=== PATIENT | female | born 1975 | race Two or more races ===

== ENCOUNTER → 2020-07-28 14:23 | Outpatient (BNVA) | payer MEDICAID, SELFPAY | PROVIDERS: PCP Internal Medicine; Visit Provider Urology | DX: N30.10 Interstitial cystitis (chronic) without hematuria (principal) | CPT/HCPCS: 81002; 99212 ==

== ENCOUNTER 2020-10-08 15:37 | Outpatient (REF) | payer MEDICAID, SELFPAY ==
--- NOTE | ~2020-10-08 | US_ITS ---
EXAMINATION: US PELVIC COMPLETE CLINICAL INFORMATION: Pelvic pain. COMPARISON: None TECHNIQUE: Transverse abdominal and transvaginal ultrasound the pelvis is performed. FINDINGS: The uterus is anteverted and anteflexed, mildly heterogeneous measuring 11.2 cm in length, 3.2 cm in AP and 4.7 cm in transverse dimension. Endometrial thickness is 0.6 cm. There are several anechoic nabothian cysts seen in the cervix. Also visualized are small calcifications in the lower uterine segment with a scar. Right ovary measures 2.1 x 1.6 x 2.1 cm and volume 3.7 mL. No focal lesion seen. The left ovary measures 3.1 x 1.3 x 2.0 cm and volume 4.2 mL. There is anechoic cyst measuring 0.8 x 0.5 x 0.9 cm. US/US pelvic complete IMPRESSION: Simple left ovarian cyst. Otherwise both ovaries are unremarkable. Heterogeneous echotexture of the uterus. No focal lesion seen. There are scattered calcifications in lower uterine segment. Nabothian cysts in cervix.
--- NOTE | ~2020-10-08 | US_ITS ---
EXAMINATION: US PELVIC COMPLETE CLINICAL INFORMATION: Pelvic pain. COMPARISON: None TECHNIQUE: Transverse abdominal and transvaginal ultrasound the pelvis is performed. FINDINGS: The uterus is anteverted and anteflexed, mildly heterogeneous measuring 11.2 cm in length, 3.2 cm in AP and 4.7 cm in transverse dimension. Endometrial thickness is 0.6 cm. There are several anechoic nabothian cysts seen in the cervix. Also visualized are small calcifications in the lower uterine segment with a scar. Right ovary measures 2.1 x 1.6 x 2.1 cm and volume 3.7 mL. No focal lesion seen. The left ovary measures 3.1 x 1.3 x 2.0 cm and volume 4.2 mL. There is anechoic cyst measuring 0.8 x 0.5 x 0.9 cm. US/US transvaginal IMPRESSION: Simple left ovarian cyst. Otherwise both ovaries are unremarkable. Heterogeneous echotexture of the uterus. No focal lesion seen. There are scattered calcifications in lower uterine segment. Nabothian cysts in cervix.
== END 2020-10-08 15:38 | disposition home or self-care (01) ==
LOC: HO.US 15:37
PROVIDERS: PCP Internal Medicine; Visit Provider Internal Medicine
DX: R10.2 Pelvic and perineal pain (principal)
CPT/HCPCS: 76830; 76856

== ENCOUNTER 2020-11-18 10:44 | Outpatient (REF) | payer MEDICAID, SELFPAY ==
--- NOTE | ~2020-11-18 | US_ITS ---
EXAMINATION: PELVIC ULTRASOUND CLINICAL INFORMATION: Follow-up left ovarian cyst COMPARISON: Previous pelvic ultrasound 10/08/2020 TECHNIQUE: Transabdominal and transvaginal pelvic ultrasound was performed. Transvaginal exam was formed for better visualization of the uterus and ovaries. FINDINGS: The uterus is anteverted and measures 10.6 x 4.4 x 5.4 cm in dimension. No focal uterine lesion is seen. Endometrial thickness is normal measuring 0.9 cm. There are nabothian cysts in the cervix. The right ovary is normal-appearing and measures 2.4 x 1.9 x 2.6 cm. There is a small 1.4 x 1.1 x 1.4 cm simple right ovarian cyst. The left ovary is normal-appearing and measures 1.9 x 1.4 x 1.9 cm. The is no left ovarian cyst. There is a small amount of fluid in the pelvis. US/US pelvic and transvaginal IMPRESSION: Normal pelvic ultrasound.
== END 2020-11-18 10:45 | disposition home or self-care (01) ==
LOC: HO.US 10:44
PROVIDERS: PCP Internal Medicine; Visit Provider Internal Medicine
DX: R10.2 Pelvic and perineal pain (principal); N83.202 Unspecified ovarian cyst, left side
CPT/HCPCS: 76830; 76856

== ENCOUNTER → 2021-03-23 13:30 | Outpatient (BNVA) | payer MEDICAID, SELFPAY | PROVIDERS: PCP Internal Medicine | DX: N30.10 Interstitial cystitis (chronic) without hematuria (principal) | CPT/HCPCS: 51700; 51798; 99212 ==

== ENCOUNTER → 2021-03-25 14:31 | Outpatient (BNVA) | payer MEDICAID, SELFPAY | PROVIDERS: PCP Internal Medicine | DX: Z13.9 Encounter for screening, unspecified (principal); N30.10 Interstitial cystitis (chronic) without hematuria | CPT/HCPCS: 51700 ==

== ENCOUNTER → 2021-03-26 14:34 | Outpatient (BNVA) | payer MEDICAID, SELFPAY | PROVIDERS: PCP Internal Medicine | DX: N30.10 Interstitial cystitis (chronic) without hematuria (principal) | CPT/HCPCS: 51700 ==

== ENCOUNTER → 2021-03-29 14:39 | Outpatient (BNVA) | payer MEDICAID, SELFPAY | PROVIDERS: PCP Internal Medicine | DX: N30.10 Interstitial cystitis (chronic) without hematuria (principal) | CPT/HCPCS: 51700 ==

== ENCOUNTER → 2021-03-30 14:27 | Outpatient (BNVA) | payer MEDICAID, SELFPAY | PROVIDERS: PCP Internal Medicine | DX: N30.10 Interstitial cystitis (chronic) without hematuria (principal); Z88.6 Allergy status to analgesic agent; Z88.1 Allergy status to other antibiotic agents; Z88.8 Allergy status to other drugs, medicaments and biological substances | CPT/HCPCS: 51700 ==

== ENCOUNTER → 2021-03-31 14:22 | Outpatient (BNVA) | payer MEDICAID, SELFPAY | PROVIDERS: PCP Internal Medicine | DX: N30.10 Interstitial cystitis (chronic) without hematuria (principal); R23.2 Flushing; R35.1 Nocturia; T50.905A Adverse effect of unspecified drugs, medicaments and biological substances, initial encounter | CPT/HCPCS: 51700 ==

== ENCOUNTER → 2021-04-06 14:30 | Outpatient (BNVA) | payer MEDICAID, SELFPAY | PROVIDERS: PCP Internal Medicine | DX: N30.10 Interstitial cystitis (chronic) without hematuria (principal) | CPT/HCPCS: 51700 ==

== ENCOUNTER → 2021-04-13 14:13 | Outpatient (BNVA) | payer MEDICAID, SELFPAY | PROVIDERS: PCP Internal Medicine | DX: N30.10 Interstitial cystitis (chronic) without hematuria (principal) | CPT/HCPCS: 51700 ==

== ENCOUNTER → 2021-04-20 14:02 | Outpatient (BNVA) | payer MEDICAID, SELFPAY | PROVIDERS: PCP Internal Medicine | DX: N30.10 Interstitial cystitis (chronic) without hematuria (principal) | CPT/HCPCS: 51700 ==

== ENCOUNTER → 2021-04-27 14:14 | Outpatient (BNVA) | payer MEDICAID, SELFPAY | PROVIDERS: PCP Internal Medicine | DX: N30.10 Interstitial cystitis (chronic) without hematuria (principal) | CPT/HCPCS: 51700 ==

== ENCOUNTER → 2021-05-04 14:53 | Outpatient (BNVA) | payer MEDICAID, SELFPAY | PROVIDERS: PCP Internal Medicine | DX: N30.10 Interstitial cystitis (chronic) without hematuria (principal) | CPT/HCPCS: 51700 ==

== ENCOUNTER → 2021-08-05 14:29 | Outpatient (BNVA) | payer MEDICAID, SELFPAY | PROVIDERS: PCP Internal Medicine | DX: N30.10 Interstitial cystitis (chronic) without hematuria (principal) | CPT/HCPCS: 99212 ==

== ENCOUNTER → 2021-11-02 13:38 | Outpatient (BNVA) | payer MEDICAID, SELFPAY | PROVIDERS: PCP Internal Medicine | DX: N30.10 Interstitial cystitis (chronic) without hematuria (principal); Z79.899 Other long term (current) drug therapy | CPT/HCPCS: 99212 ==

== ENCOUNTER → 2022-02-07 10:13 | Outpatient (BNVA) | payer MEDICAID, SELFPAY | PROVIDERS: PCP Internal Medicine; Referring Provider Internal Medicine; Visit Provider Nurse Practitioner Family | DX: Z12.11 Encounter for screening for malignant neoplasm of colon (principal); K59.04 Chronic idiopathic constipation | CPT/HCPCS: 99202; 99212 ==

== ENCOUNTER 2022-04-25 12:28 | Outpatient (REF) | payer MEDICAID, SELFPAY ==
[2022-04-25 13:29] LABS: Hematocrit 37.3 % (37.0-47.0); Hemoglobin 12.2 g/dl (12.0-16.0); Mean Corpuscular HGB Conc 32.7 g/dl (31.0-35.0); Mean Corpuscular Hemoglobin 28.8 pg (27.0-33.0); Mean Platelet Volume 11.8 fL (9.4-12.3); Platelet Count 255 X10*3/uL (160-400); Red Blood Count 4.24 X10*6/uL (4.20-5.50); Red Cell Distribution Width 12.5 % (11.0-16.0); White Blood Count 6.4 X10*3/uL (4.8-10.8)
[2022-04-25 13:51] LABS: Alanine Aminotransferase 19 U/L (0-31); Albumin Level 4.7 g/dL (3.5-5.0); Alkaline Phosphatase 57 U/L (39-117); Anion Gap 15 (12-20); Aspartate Amino Transferase 20 U/L (5-31); Bilirubin Total 0.4 mg/dL (0.0-1.0); Blood Urea Nitrogen 9 mg/dL (9-16); Carbon Dioxide 29 mmol/L (22-29); Chloride 100 mmol/L (96-108); Estimated Glomerular Filt Rate > 60; Glucose Random 86 mg/dL (60-115); Potassium 4.2 mmol/L (3.3-5.1); Sodium 140 mmol/L (135-145); Total Protein 7.6 g/dL (6.5-8.0)
== END 2022-04-25 12:29 | disposition home or self-care (01) ==
LOC: HO.LAB 12:28
PROVIDERS: PCP Internal Medicine; Visit Provider Nurse Practitioner Family
DX: Z12.11 Encounter for screening for malignant neoplasm of colon (principal)
CPT/HCPCS: 36415; 80053; 84443; 85027

== ENCOUNTER → 2022-04-28 07:45 | Outpatient (BNVA) | payer MEDICAID, SELFPAY | PROVIDERS: PCP Internal Medicine; Visit Provider Nurse Practitioner Family | DX: G47.33 Obstructive sleep apnea (adult) (pediatric) (principal); Z99.89 Dependence on other enabling machines and devices | CPT/HCPCS: 99202 ==

== ENCOUNTER → 2022-05-03 09:39 | Outpatient (BNVA) | payer MEDICAID, SELFPAY | PROVIDERS: PCP Internal Medicine; Visit Provider Nurse Practitioner Family | DX: Z12.11 Encounter for screening for malignant neoplasm of colon (principal); K59.04 Chronic idiopathic constipation | CPT/HCPCS: 99212 ==

== ENCOUNTER 2022-05-06 09:41 | Outpatient (REF) | payer MEDICAID, SELFPAY ==
--- NOTE | ~2022-05-06 | XR_ITS ---
EXAMINATION: XR shoulder LT min 2V CLINICAL INFORMATION: Reason for Exam PAIN COMPARISON: None. TECHNIQUE: Four views of the shoulder FINDINGS: No acute fracture or dislocation. Mild degenerative changes of the acromioclavicular and glenohumeral joints with degenerative spurring. 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 XR/XR shoulder LT min 2V IMPRESSION: 1. No acute fracture or dislocation. 2. Mild degenerative changes of the shoulder. 3. 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
--- NOTE | ~2022-05-06 | XR_ITS ---
EXAMINATION: XR hip LT min 2V CLINICAL INFORMATION: Reason for Exam OSTEOARTHRITIS COMPARISON: None. TECHNIQUE: Two views of the left hip FINDINGS: No acute fracture or dislocation. Mild degenerative changes of the left hip with subchondral cystic change and marginal osteophytes. No soft tissue abnormality. XR/XR hip LT min 2V IMPRESSION: Mild degenerative changes of the left hip.
== END 2022-05-06 09:42 | disposition home or self-care (01) ==
LOC: HO.XRAY 09:41
PROVIDERS: PCP Internal Medicine; Visit Provider Internal Medicine
DX: M16.12 Unilateral primary osteoarthritis, left hip (principal); M25.512 Pain in left shoulder
CPT/HCPCS: 73030; 73502

== ENCOUNTER 2022-05-11 13:37 | Outpatient (REF) | payer MEDICAID, SELFPAY ==
--- NOTE | ~2022-05-11 | CT_ITS ---
EXAMINATION: CT HEAD WITHOUT CONTRAST CLINICAL INFORMATION: Hypertension. COMPARISON: Head CT from 09/30/2019. TECHNIQUE: Contiguous axial imaging was performed from the skull base to vertex without intravenous administration of contrast. This CT examination was performed using dose optimization techniques as appropriate, variously including the following: *Automated exposure control *Adjustment of mA and/or kV according to patient size (this includes techniques or standardized protocols for targeted exams where dose is matched to indication/reason for exam; i.e. extremities or head) *Use of iterative reconstruction technique DLP: 643 mGy-cm. FINDINGS: There is what may represent a chronic arachnoid cyst versus open lip schizencephalic defect along the high left parietal convexity, unchanged from the prior study. There is chronic remodeling of the inner cortical table of the high left parietal calvarium as well. There is no evidence of acute intracranial hemorrhage or territorial infarction. No new mass effect or midline shift is seen. Cleary to white matter differentiation is well preserved. The ventricles are otherwise normal in size. There is no abnormal attenuation within the brain parenchyma. The osseous structures and soft tissues are normal. The mastoid air cells are well aerated. There is significant mucosal thickening in the ethmoid and right maxillary sinus cavities with milder mucosal thickening in the left maxillary antrum and sphenoid sinuses. CT/CT head/brain wo IV con IMPRESSION: No acute intracranial pathology. Stable high left parietal extra-axial CSF collection remodeling the inner cortical table of the left parietal calvarium with extension nearly to the roof of the left lateral ventricle. Significant right maxillary sinus mucosal thickening and moderate ethmoid sinus disease partially visualized.
== END 2022-05-11 13:38 | disposition home or self-care (01) ==
LOC: HO.CT 13:37
PROVIDERS: PCP Internal Medicine; Visit Provider Internal Medicine
DX: R04.0 Epistaxis (principal); I10 Essential (primary) hypertension
CPT/HCPCS: 70450

== ENCOUNTER → 2022-06-22 13:14 | Outpatient (REF) | payer MEDICAID, SELFPAY | LOC: HO.SL 13:14 | PROVIDERS: PCP Internal Medicine; Visit Provider Nurse Practitioner Family | DX: G47.33 Obstructive sleep apnea (adult) (pediatric) (principal); R40.0 Somnolence; Z99.89 Dependence on other enabling machines and devices | CPT/HCPCS: 95806; 95810 ==

== ENCOUNTER → 2022-07-07 08:39 | Outpatient (BNVA) | payer MEDICAID, SELFPAY | PROVIDERS: PCP Internal Medicine; Visit Provider Nurse Practitioner Family | DX: G47.33 Obstructive sleep apnea (adult) (pediatric) (principal); R06.83 Snoring; R40.0 Somnolence; Z99.89 Dependence on other enabling machines and devices | CPT/HCPCS: 99212 ==

== ENCOUNTER 2022-07-08 10:31 | Day surgery (SDC) | payer MEDICAID, SELFPAY ==
[2022-07-05 15:18] VITALS: BMI 36.3
--- NOTE | 2022-07-08 10:15 | HO.ANESPROP2 ---
[facility] Active Problems Active Problems: All Active Problems (Updated 07/07/22 @ 09:20 by Randy Biggs CNP) Snoring (Acute) SIERRA on CPAP (Acute) Daytime sleepiness (Acute) Interstitial cystitis (Acute) Past Medical History Medical History (Updated 07/07/22 @ 09:20 by Randy Biggs CNP) delivery delivered History of UTI Interstitial cystitis Interstitial cystitis Family History Family History Mother Diabetes Father Stroke Family history of problems with anesthesia: No Surgical History Surgical History (Updated 07/05/22 @ 15:21 by Geovanna Dunham RN) History of Hx of tubal ligation History of Problems with Anesthesia: No Social History Social History (Updated 07/07/22 @ 08:57 by Altagracia Huynh CMA) Household Members: Family Alcohol intake: never Patient Tobacco Use Status: Never used Tobacco Are you DNR?: No Advance Directives: No Advance Directives Information Provided: Yes Advance Directives on File: No Patient : No FDLMP: 05/22/2022 service: No Current occupational exposures/hazards: No Meds Allergies Allergy/AdvReac Type Severity Reaction Status Date / Time Sulfa (Sulfonamide Allergy Severe tremors, Verified 07/07/22 08:55 Antibiotics) unsteadiness baclofen Allergy Intermediate cramping Verified 07/07/22 08:55 aspirin AdvReac Severe Rash Verified 07/07/22 08:55 naproxen AdvReac Severe Rash Verified 07/07/22 08:55 levetiracetam AdvReac Unknown Verified 07/08/22 10:58 oxcarbazepine AdvReac Unknown Verified 07/08/22 10:57 pentosan polysulfate sodium AdvReac Unknown Verified 07/08/22 10:56 [From [place]] trazodone AdvReac Unknown Verified 07/08/22 10:58 henazopynide Allergy Unknown Uncoded 07/08/22 10:56 Antibiotic AdvReac Unknown Rash Uncoded 07/07/22 08:55 Home Medications Medication Instructions Recorded Confirmed Last Taken Type calcium carbonate 300 mg (750 mg) 1 tab PO TID 08/05/21 07/05/22 Unknown History chewable tablet (Antacid Extra-Strength) hydrochlorothiazide 12.5 mg capsule 12.5 mg PO DAILY 08/05/21 07/05/22 Unknown History lamotrigine 100 mg tablet 100 mg PO BID 08/05/21 07/05/22 Unknown History lisinopril 5 mg tablet 5 mg PO DAILY 08/05/21 07/05/22 Unknown History sodium chloride 0.65 % nasal spray 1 - 2 spray intranasal Q2-3H PRN 08/05/21 11/02/21 Unknown History aerosol (Deep Sea Nasal) congestion metronidazole 0.75 % topical gel topical 01/31/22 Unknown History phenazopyridine 100 mg tablet 100 mg PO DAILY uti 07/05/22 07/05/22 Unknown History (Pyridium) Exam Exam Date and Time: July 08, 2022 1015 Height,Weight and Vital Signs: Height 4 ft 10 in Weight 78.925 kg Airway Mallampati Class: II (Front top cap) TM Dist: >3cm Neck ROM: Full Heart: rrr Lungs: cta Assessment and Plan Assessment Anesthesia Assessment: Anesthesia Plan Discussed and Chart Reviewed Final Anesthetic Review Family History of Problems with Anesthesia: No History of Problems with Anesthesia: No NPO: Yes ASA Class: II Final Preanesthetic Review: No Changes in Pt Med Stat, Meds/Allgs Chart Reviewed and Consent Obtained/Reviewed Patient Risk: Intermediate Procedure Risk: Intermediate Anesthetic Plan Anesthetic Plan: MAC: Disposition: Standard PACU
--- NOTE | 2022-07-08 10:55 | MHC.SHP ---
Pre-Procedural Eval Section A Date of Service: 07/08/22 The patient is an INPATIENT: No The History & Physical has been completed within 30 days and I have reviewed it.: No Section B Chief Complaint: screening Details of Present Illness: Colon cancer screening Relevant Family History (Specify if Yes): No Relevant Social History: None Present Medications: see Short Stay Collaborative assessment Medical History: Significant History ( delivery delivered History of UTI Interstitial cystitis) History of Previous Operations: Relevant previous surgery/procedure and date(s) ( history of , history of tubal ligation) Allergies: Allergies Allergy/AdvReac Type Severity Reaction Status Date / Time Sulfa (Sulfonamide Allergy Severe tremors, Verified 07/07/22 08:55 Antibiotics) unsteadiness baclofen Allergy Intermediate cramping Verified 07/07/22 08:55 aspirin AdvReac Severe Rash Verified 07/07/22 08:55 naproxen AdvReac Severe Rash Verified 07/07/22 08:55 Antibiotic AdvReac Unknown Rash Uncoded 07/07/22 08:55 Review of Systems Sugical H&P ROS: Negative: Constitution, Cardiovascular, Respiratory and Gastrointestinal Exam Surgical H&P Exam: Normal: Heart, Normal: Lungs, Normal: Extremities and Normal: Abdomen Plan Diagnosis/Plan: Unchanged I have reviewed the history and physical and performed a pertinent physical examination on my patient. No changes have occurred unless specified. Time Spent With Patient Time: Total time managing care of this patient today ____ minutes.
--- NOTE | 2022-07-08 11:10 | PM.OP ---
Brief Operative Note Date of Service: 07/08/22 Pre-op diagnosis: colon cancer screening Post-op diagnosis: other ( diverticulosis, hemorrhoids) Procedure: COLONOSCOPY TO CECUM Surgeon: Ladan Ibarra MD Anesthesia: MAC Was an Free Lance Artist used for this Procedure?: Yes Free Lance Artist: Monyt Maya Estimated blood loss (mL): 0 Pathology: none sent Condition: stable Disposition: PACU
--- NOTE | 2022-07-08 11:11 | W.PM.OPN ---
Operative Note Operative Note Date of Service: 07/08/22 Narrative: Pre-op diagnosis:?colon cancer screening, chronic constipation Post-op diagnosis:?other ( diverticulosis, hemorrhoids) Surgeon: Ladan Ibarra MD Anesthesia:?MAC COLONOSCOPY TILL CECUM Consent: Indications for the procedure and potential complications of bleeding, perforation, reaction to medications and missed diagnosis were discussed with the patient and informed consent was obtained. Instrument: Olympus PCF H 190 L variable stiffness pediatric colonoscope Monitoring: Vital signs and clinical assessment, intermittent blood pressure monitoring, continuous EKG monitoring, Pulse oximetry and Carbon Dioxide monitoring were done throughout the procedure. Colon withdrawl time was 23 minutes. Procedure: The patient was placed in the left lateral decubitis position and pre-procedure medications were administered. After a digital rectal examination of the ano-rectum, the video colonoscope was inserted into the rectum and advanced through the colon to the cecum. The colonoscope was slowly withdrawn in a retrograde panoramic fashion and the colon mucosa was carefully examined including a retroflexed view of the rectum. Findings and interventions are described below. Procedure Difficulty: Without difficulty Findings: Terminal Ileum: Not evaluated Cecum: Normal Ascending Colon: Normal Transverse Colon: Normal Descending Colon: Normal Sigmoid Colon: Moderate diverticulosis Rectum: Normal Ano-rectum: Moderate internal hemorrhoids Colon preparation: Good after copious irrigation Impression and Post Procedure Diagnosis: Colonoscopy Findings: No polyps were detected. Moderate diverticulosis seen in the sigmoid colon Moderate hemorrhoids on retroflexed exam. Plan: Patient has an appointment on 07/22/22 in the [facility] with Lorena Barraza FNP-BC . Repeat Colonoscopy in 10 years. Diverticulosis handout was given in the discharge area
[2022-07-08 11:13] VITALS: BP 118/63; PULSE 63; RESP 16; TEMP 36.8; O2SAT 99
[2022-07-08] MEDS: Lactated Ringers 1,000 ML 100 ML IVCONT (11:16)
[2022-07-08 12:03] VITALS: BP 75/43; PULSE 75; RESP 18; TEMP 36.4; O2SAT 99
[2022-07-08 12:06] VITALS: BP 87/45
[2022-07-08 12:14] VITALS: BP 100/59
[2022-07-08 12:18] VITALS: BP 111/35; PULSE 59; RESP 18; TEMP 36.8; O2SAT 99
== END 2022-07-08 12:38 | disposition home or self-care (01) ==
PROVIDERS: PCP Internal Medicine; Visit Provider Internal Medicine Gastroenterology
PROC: 0DJD8ZZ Inspection of Lower Intestinal Tract, Via Natural or Artificial Opening Endoscopic (ICD-10-PCS; CPT 45378; principal; 2022-07-08 11:20)
DX: Z12.11 Encounter for screening for malignant neoplasm of colon (principal); K57.30 Diverticulosis of large intestine without perforation or abscess without bleeding; K64.8 Other hemorrhoids; K59.04 Chronic idiopathic constipation; K21.9 Gastro-esophageal reflux disease without esophagitis; N30.10 Interstitial cystitis (chronic) without hematuria; Z87.440 Personal history of urinary (tract) infections; G47.33 Obstructive sleep apnea (adult) (pediatric); R56.9 Unspecified convulsions; Z79.899 Other long term (current) drug therapy; Z99.89 Dependence on other enabling machines and devices; Z88.1 Allergy status to other antibiotic agents; Z88.2 Allergy status to sulfonamides; Z88.8 Allergy status to other drugs, medicaments and biological substances
CPT/HCPCS: 45378

== ENCOUNTER → 2022-07-22 08:57 | Outpatient (BNVA) | payer MEDICAID, SELFPAY | PROVIDERS: PCP Internal Medicine; Visit Provider Nurse Practitioner Family | DX: K57.90 Diverticulosis of intestine, part unspecified, without perforation or abscess without bleeding (principal); Z98.890 Other specified postprocedural states | CPT/HCPCS: 99212 ==

== ENCOUNTER 2022-08-02 09:44 | Outpatient (REF) | payer MEDICAID, SELFPAY ==
[2022-08-02 16:53] LABS: Urine Cytology See Pathology rpt
== END 2022-08-02 09:45 | disposition home or self-care (01) ==
LOC: HO.LAB 09:44
PROVIDERS: PCP Internal Medicine; Visit Provider Nurse Practitioner Family
DX: N30.10 Interstitial cystitis (chronic) without hematuria (principal); R10.9 Unspecified abdominal pain; K21.9 Gastro-esophageal reflux disease without esophagitis; Z79.899 Other long term (current) drug therapy
CPT/HCPCS: 88112; 99212

== ENCOUNTER 2022-09-05 09:01 | Outpatient (REF) | payer MEDICAID, SELFPAY ==
--- NOTE | ~2022-09-05 | US_ITS ---
EXAMINATION: US RETROPERITONEAL LIMITED (RENAL ONLY) CLINICAL INFORMATION: Left flank pain. COMPARISON: None TECHNIQUE: Real-time imaging of the kidneys. FINDINGS: RIGHT KIDNEY: 10.2 x 4.3 x 5.0 cm (SAG x AP x TRV). The kidney is normal in size, contour, and echogenicity. Renal cortical thickness is normal. No calculi or focal parenchymal lesions. No hydronephrosis. LEFT KIDNEY: 11.5 x 5.6 x 4.1 cm (SAG x AP x TRV). The kidney is normal in size, contour, and echogenicity. Renal cortical thickness is normal. No calculi or focal parenchymal lesions. No hydronephrosis. US/US retroperitoneal limited IMPRESSION: Unremarkable examination.
== END 2022-09-05 09:02 | disposition home or self-care (01) ==
LOC: HO.US 09:01
PROVIDERS: Visit Provider Nurse Practitioner Family
DX: R10.9 Unspecified abdominal pain (principal); N30.10 Interstitial cystitis (chronic) without hematuria
CPT/HCPCS: 76775

== ENCOUNTER 2022-09-07 13:33 | Outpatient (REF) | payer MEDICAID, SELFPAY ==
--- NOTE | ~2022-09-07 | US_ITS ---
EXAMINATION: US PELVIS LIMITED (BLADDER) CLINICAL INFORMATION: Poor urinary stream. COMPARISON: Ultrasound retroperitoneal limited 09/05/2022. TECHNIQUE: Real-time imaging of the bladder. FINDINGS: BLADDER: Well distended and normal. Bilateral ureteral jets are demonstrated. Prevoid bladder volume is 385 mL. Postvoid bladder volume is 20 mL. OTHER: A 1.5 cm in maximal diameter left ovarian cyst is noted. This is a benign finding, for which no imaging follow-up is recommended. US/US bladder IMPRESSION: Unremarkable ultrasound examination of the urinary bladder..
== END 2022-09-07 13:34 | disposition home or self-care (01) ==
LOC: HO.US 13:33
PROVIDERS: PCP Internal Medicine; Visit Provider Nurse Practitioner Family
DX: R39.12 Poor urinary stream (principal)
CPT/HCPCS: 76857

== ENCOUNTER → 2022-09-09 13:31 | Outpatient (BNVA) | payer MEDICAID, SELFPAY | PROVIDERS: PCP Internal Medicine; Visit Provider Nurse Practitioner Family | DX: G47.33 Obstructive sleep apnea (adult) (pediatric) (principal); R40.0 Somnolence; R06.83 Snoring; Z99.89 Dependence on other enabling machines and devices | CPT/HCPCS: 99212 ==

== ENCOUNTER → 2022-09-20 21:58 | Outpatient (REF) | payer MEDICAID, SELFPAY | LOC: HO.SL 21:58 | PROVIDERS: Visit Provider Nurse Practitioner Family | DX: R40.0 Somnolence (principal); R06.83 Snoring | CPT/HCPCS: 95810 ==

== ENCOUNTER → 2022-11-01 14:12 | Outpatient (BNVA) | payer MEDICAID, SELFPAY | PROVIDERS: PCP Internal Medicine; Visit Provider Nurse Practitioner Family | DX: N30.10 Interstitial cystitis (chronic) without hematuria (principal); R31.29 Other microscopic hematuria | CPT/HCPCS: 99212 ==

== ENCOUNTER → 2022-11-14 09:13 | Outpatient (BNVA) | payer MEDICAID, SELFPAY | PROVIDERS: PCP Internal Medicine; Visit Provider Nurse Practitioner Family | DX: G47.9 Sleep disorder, unspecified (principal); E66.9 Obesity, unspecified | CPT/HCPCS: 99212 ==

== ENCOUNTER 2022-12-02 09:02 | Outpatient (REF) | payer MEDICAID, SELFPAY ==
--- NOTE | ~2022-12-02 | MM_ITS ---
EXAMINATION: MM SCREENING DIGITAL BREAST TOMOSYNTHESIS, BILATERAL CLINICAL INFORMATION: Screening. Asymptomatic. Age 47. Prior outside mammography from [place] performed in 2013, unavailable. Family history breast cancer, sister. The lifetime risk of breast cancer based on the Tyrer-Cuzick Model is 13%. COMPARISON: None. TECHNIQUE: Digital breast tomosynthesis is performed in both the craniocaudal and mediolateral oblique views along with computer-aided detection (CAD). Synthesized 2D images are generated from the tomosynthesis. FINDINGS: The breasts are almost entirely fatty (ACR BI-RADS breast composition Category a). Background stromal markings are normal. No architectural abnormality. There are no significant masses, abnormal calcifications, or other abnormalities. The axilla and skin contours are unremarkable. If prior outside mammography is able to be retrieved, comparison will be made in an addendum report. MM/MM tomosynthesis screening BI IMPRESSION: No mammographic evidence of malignancy. ASSESSMENT: BI-RADS 1: Negative RECOMMENDATION: Routine annual mammography screening. This patient's information was entered into a reminder system with a target due date for their next mammogram.
== END 2022-12-02 09:03 | disposition home or self-care (01) ==
LOC: HO.MAMMO 09:02
PROVIDERS: PCP Internal Medicine; Visit Provider Internal Medicine
DX: Z12.31 Encounter for screening mammogram for malignant neoplasm of breast (principal)
CPT/HCPCS: 77063; 77067

== ENCOUNTER 2023-08-11 12:01 | Outpatient (REF) | payer MEDICAID, SELFPAY ==
[2023-08-11 14:26] LABS: Anion Gap 13 (12-20); Blood Urea Nitrogen 10 mg/dL (9-16); Calcium 10.5 mg/dL (8.4-10.2); Carbon Dioxide 28 mmol/L (22-29); Chloride 103 mmol/L (96-108); Estimated Glomerular Filt Rate > 60; Glucose Random 74 mg/dL (60-115); Potassium 3.8 mmol/L (3.3-5.1); Sodium 140 mmol/L (135-145)
[2023-08-11 14:46] LABS: Vitamin D 25-OH Total 20.4 ng/mL (>30)
== END 2023-08-11 12:02 | disposition home or self-care (01) ==
LOC: HO.HHCL 12:01
PROVIDERS: Visit Provider Internal Medicine
DX: I10 Essential (primary) hypertension (principal)
CPT/HCPCS: 36415; 80048; 82306

== ENCOUNTER 2023-10-25 14:02 | Outpatient (REF) | payer MEDICAID, SELFPAY ==
--- NOTE | ~2023-10-25 | XR_ITS ---
EXAMINATION: XR CHEST 2 VIEWS XR RIBS, RIGHT CLINICAL INFORMATION: Subacute cough and left chest pain since 10/13/2023. COMPARISON: None TECHNIQUE: Frontal and lateral views of the chest were obtained. 3 views of the left ribs were obtained. FINDINGS: Lungs are clear. No consolidation, pneumothorax, or pleural effusion. Within the right upper lobe overlapping the posterior aspect of the right fifth rib, a 5 mm nodule is seen. The cardiomediastinal silhouette and pulmonary vasculature are normal. Osseous structures are unremarkable. Ribs are intact. No fractures are identified. XR/XR ribs LT 2V IMPRESSION: Unremarkable examination.
--- NOTE | ~2023-10-25 | XR_ITS ---
EXAMINATION: XR CHEST 2 VIEWS XR RIBS, RIGHT CLINICAL INFORMATION: Subacute cough and left chest pain since 10/13/2023. COMPARISON: None TECHNIQUE: Frontal and lateral views of the chest were obtained. 3 views of the left ribs were obtained. FINDINGS: Lungs are clear. No consolidation, pneumothorax, or pleural effusion. Within the right upper lobe overlapping the posterior aspect of the right fifth rib, a 5 mm nodule is seen. The cardiomediastinal silhouette and pulmonary vasculature are normal. Osseous structures are unremarkable. Ribs are intact. No fractures are identified. XR/XR chest 2V IMPRESSION: Unremarkable examination.
== END 2023-10-25 14:03 | disposition home or self-care (01) ==
LOC: HO.HHCX 14:02
PROVIDERS: Visit Provider Internal Medicine
DX: R05.2 Subacute cough (principal); R07.9 Chest pain, unspecified
CPT/HCPCS: 71046; 71100

== ENCOUNTER 2023-11-09 08:45 | Outpatient (REF) | payer MEDICAID, SELFPAY ==
--- NOTE | ~2023-11-09 | MM_ITS ---
EXAMINATION: MM DIAGNOSTIC DIGITAL BREAST TOMOSYNTHESIS, BILATERAL US BREAST LIMITED, LEFT MAMMOGRAPHY: CLINICAL INFORMATION: 48-year-old female complaining of left breast pain spanning 12:00 to 2:00 axis. No significant prior breast history. COMPARISON: Mammography: 12/02/2022. TECHNIQUE: Digital breast tomosynthesis is performed in both the craniocaudal and mediolateral oblique views along with computer-aided detection (CAD). Synthesized 2D images are generated from the tomosynthesis. In addition to standard views, full-field digital 3-D left mediolateral view was also included. FINDINGS: The breasts are almost entirely fatty (ACR BI-RADS breast composition Category a). Region of breast pain was marked by a pain marker in the far upper outer left breast by the technologist. There is no underlying mammographic abnormality identified. There are no suspicious masses, suspicious grouped calcifications, or areas of architectural distortion in either breast. The parenchymal pattern is stable from the prior exam. ULTRASOUND: CLINICAL INFORMATION: Patient complaining of left breast pain spanning 12:00 to 2:00 axis. COMPARISON: None TECHNIQUE: Targeted sonographic evaluation was performed using a high frequency linear transducer. Left breast upper outer quadrant was interrogated. Selected archived documentation. FINDINGS: LEFT BREAST: There is predominantly fatty breast tissue present. No suspicious mass is seen. There is no pathologic acoustic shadowing. There is no axillary adenopathy. No cystic abnormalities. There is no sonographic correlate to the region of left breast pain. MM/MM tomosynthesis diagnostic BI IMPRESSION: There are no findings suspicious for malignancy in either breast. Region of breast pain upper outer left breast shows no mammographic or sonographic correlate. This should be managed clinically. Otherwise, recommend resuming routine annual mammography. OVERALL ASSESSMENT: Mammography: BI-RADS 1 - Negative Ultrasound: BI-RADS 1 - Negative RECOMMENDATION: 1. Patient should be managed based on the clinical impression. 2. Otherwise, routine annual screening mammography. This patient's information was entered into a reminder system with a target due date for their next mammogram.
== END 2023-11-09 08:46 | disposition home or self-care (01) ==
LOC: HO.MAMMO 08:45
PROVIDERS: PCP Internal Medicine; Visit Provider Internal Medicine
DX: N64.4 Mastodynia (principal)
CPT/HCPCS: 76642; 77062; 77066

== ENCOUNTER → 2023-11-09 09:30 | Outpatient (BNV) | payer MEDICAID, SELFPAY | PROVIDERS: PCP Internal Medicine; Visit Provider Radiology Diagnostic Radiology | DX: N64.4 Mastodynia (principal) | CPT/HCPCS: 76642; 77062; 77066 ==

== ENCOUNTER 2023-11-15 13:41 | Outpatient (REF) | payer MEDICAID, SELFPAY ==
--- NOTE | ~2023-11-15 | US_ITS ---
EXAMINATION: US PELVIS CLINICAL INFORMATION: Follow-up pelvic pain and ovarian cyst. COMPARISON: Pelvic ultrasound 11/18/2020, 10/08/2020. TECHNIQUE: Ultrasound of the pelvis is performed using both transabdominal and transvaginal transducers. Transvaginal imaging is performed due to inadequate visualization transabdominally. FINDINGS: Uterus: The uterus is anteverted and measures 8.4 x 4.9 x 5.0 cm. Nabothian cysts in the cervix. No visible uterine mass. The double wall endometrial thickness is 11 mm. Adnexa: The right ovary measures 2.3 x 1.1 x 1.4 cm, 1.9 mL. The left ovary measures 2.4 x 2.3 x 1.8 cm, volume 5.2 mL. There are physiologic cysts/follicles in both ovaries for which no imaging follow-up is recommended. No free fluid. US/US pelvic and transvaginal IMPRESSION: No explanation for pelvic pain.
== END 2023-11-15 13:42 | disposition home or self-care (01) ==
LOC: HO.US 13:41
PROVIDERS: PCP Internal Medicine; Visit Provider Internal Medicine
DX: N83.202 Unspecified ovarian cyst, left side (principal)
CPT/HCPCS: 76830; 76856

== ENCOUNTER 2023-12-08 11:51 | Outpatient (REF) | payer MEDICAID, SELFPAY ==
[2023-12-08 13:56] LABS: Anion Gap 12 (12-20); Blood Urea Nitrogen 9 mg/dL (9-16); Carbon Dioxide 28 mmol/L (22-29); Chloride 103 mmol/L (96-108); Cholesterol 168 mg/dL (<200); Estimated Glomerular Filt Rate > 60; Glucose Random 88 mg/dL (60-115); HDL Cholesterol 54 mg/dL (>40); LDL Cholesterol Calculated 101 mg/dL (<100); Potassium 4.2 mmol/L (3.3-5.1); Sodium 139 mmol/L (135-145); Triglycerides 69 mg/dL (<150)
[2023-12-08 14:04] LABS: Vitamin D 25-OH Total 24.7 ng/mL (>30)
[2023-12-08 15:06] LABS: Reflex LDLD? No
[2023-12-09 06:10] LABS: CT PCR NOT DETECTED (Not Detect.); NG PCR NOT DETECTED (Not Detect.)
[2023-12-09 08:13] LABS: Bacterial Vaginosis PCR NEGATIVE (Negative); Candida Group PCR NOT DETECTED (Not Detect); Candida glab krusei PCR NOT DETECTED (Not Detect); Trichomonas vaginalis PCR NOT DETECTED (Not Detect)
[2023-12-13 21:59] LABS: HPV mRNA E6/E7 rflx Not Detected (Not Detected)
== END 2023-12-08 11:52 | disposition home or self-care (01) ==
LOC: HO.HHCL 11:51
PROVIDERS: Visit Provider Internal Medicine
DX: R07.89 Other chest pain (principal); R10.9 Unspecified abdominal pain; Z01.419 Encounter for gynecological examination (general) (routine) without abnormal findings
CPT/HCPCS: 0352U; 0353U; 36415; 80048; 80061; 82306; 87624; 88142

== ENCOUNTER 2024-02-14 11:29 | Outpatient (REF) | payer MEDICAID, SELFPAY ==
--- NOTE | ~2024-02-14 | CT_ITS ---
EXAMINATION: CT ABDOMEN AND PELVIS WITH CONTRAST CLINICAL INFORMATION: Pelvic pain. COMPARISON: Pelvic ultrasound dated 11/15/2023; bladder ultrasound dated 09/07/2022; renal ultrasound dated 09/05/2022; ultrasound pelvis dated 11/18/2020. TECHNIQUE: Multidetector volumetric images were obtained from the superior aspect of the liver through the pubic symphysis following administration 85 mL of Omnipaque 350 intravenous contrast. Sagittal and coronal reformatted images were obtained on the technologist's workstation. Oral contrast: No This CT examination was performed using dose optimization techniques as appropriate, variously including the following: *Automated exposure control *Adjustment of mA and/or kV according to patient size (this includes techniques or standardized protocols for targeted exams where dose is matched to indication/reason for exam; i.e. extremities or head) *Use of iterative reconstruction technique DLP: 520 mGy-cm FINDINGS: LUNG BASES: The visualized lung bases are unremarkable. LIVER, GALLBLADDER, AND BILIARY TREE: The liver is normal in size, shape, and attenuation. No focal hepatic lesion or biliary ductal dilatation is present. The gallbladder is unremarkable with no evidence of radiopaque gallstones, gallbladder wall thickening, or obvious pericholecystic inflammatory changes. PANCREAS: Unremarkable. SPLEEN: Unremarkable. ADRENAL GLANDS: Unremarkable. KIDNEYS AND URETERS: The kidneys are normal in size, shape, and attenuation. No hydronephrosis, hydroureter, or calculi seen. No perinephric stranding. BLADDER: Unremarkable. GASTROINTESTINAL TRACT: There is a moderately large stool burden, suggesting constipation. No obstruction, free intraperitoneal air or abscess is seen. There is no focal bowel wall thickening. No diverticulosis or diverticulitis is seen. The vermiform appendix is not identified with certainty; however, there is no finding to suggest appendicitis. ABDOMINAL WALL: No significant hernia is appreciated. LYMPH NODES: Normal. VASCULAR: Unremarkable. PELVIC VISCERA: The uterus and adnexa are unremarkable. A left tubal ligation clip is noted. OSSEOUS STRUCTURES: There is multi-level mild lower thoracic spondylosis. No acute or aggressive osseous finding is noted. CT/CT abdomen pelvis w IV con IMPRESSION: Findings suggest constipation, without keegan bowel obstruction. No focal bowel wall thickening is seen, and there is no appendicitis or diverticulitis noted. No abdominopelvic mass, free fluid or lymphadenopathy is seen. There is no urinary calculus or obstruction. Fleischner guidelines were followed. Electronically signed by: Basil Khan MD 03/10/2024 04:33 PM EDT RP
[2024-02-14] MEDS: Barium Sulfate Oral (Mocha) 450 ML ORAL.SUSP 900 ML PO (17:22)
[2024-02-14] MEDS: iohexoL 350 MG/ML 100 ML INFUS..BTL IV (17:23)
== END 2024-02-14 11:30 | disposition home or self-care (01) ==
LOC: HO.CT 11:29
PROVIDERS: PCP Internal Medicine; Visit Provider Internal Medicine
DX: R10.2 Pelvic and perineal pain (principal)
CPT/HCPCS: 74177; Q9967

== ENCOUNTER 2024-10-07 14:29 | Outpatient (AMB) | payer MEDICAID, SELFPAY ==
--- NOTE | 2024-10-07 14:56 | A.OFFVIS_ITS ---
Intake Visit Reasons: follow up Intake Note: Patient is present for follow up interstitial cystitis and microscopic hematuria Urology Medications: pyridium (prn), famotidine Blood Thinner: none Category Director Required: Yes Category Director Name: KALE ABURTO Accompanied by: Self / Same As Patient Allergies Sulfa (Sulfonamide Antibiotics) Allergy (Severe, Verified 10/07/24 15:37) tremors, unsteadiness baclofen Allergy (Intermediate, Verified 10/07/24 15:37) cramping aspirin Adverse Reaction (Severe, Verified 10/07/24 15:37) Rash levetiracetam Adverse Reaction (Severe, Verified 10/07/24 15:37) Unknown naproxen Adverse Reaction (Severe, Verified 10/07/24 15:37) Rash oxcarbazepine Adverse Reaction (Severe, Verified 10/07/24 15:37) Facial Swelling pentosan polysulfate sodium [From Elmiron] Adverse Reaction (Mild, Verified 10/07/24 15:37) Vomiting trazodone Adverse Reaction (Unknown, Verified 10/07/24 15:37) Unknown henazopynide Allergy (Severe, Uncoded 10/07/24 15:37) Unknown Medication List - Last Reconciled 10/07/24 by ARLEEN Shepherd bisacodyl (Dulcolax (bisacodyl)) 10 mg (2 x 5 mg) PO BEDTIME calcium carbonate (Antacid Extra-Strength) 1 tab PO TID famotidine (Pepcid) 20 mg PO BID 90 days gabapentin 300 mg PO BEDTIME 30 days hydrochlorothiazide 12.5 mg PO DAILY imipramine HCl 25 mg PO BEDTIME 30 days lamotrigine 100 mg PO BID lisinopril 5 mg PO DAILY melatonin 1-3 tabs orally bedtime PRN; 30 days metronidazole 0.75% topical polyethylene glycol 3350 (Miralax) 17 grams PO DAILY sodium chloride 0.65% (Deep Sea Nasal) 1 - 2 sprays intranasal Q2-3H PRN HPI Comments Details: Briana is a 48-year-old Algerian-speaking female patient of Dr. Coleman who was accompanied by her daughter and grandson at today's office visit. She has a past medical history of diverticulitis as well as interstitial cystitis. In discussion with the patient today she reports noting worsening symptoms of her interstitial cystitis. She discusses her ongoing issues with urinary urgency, urinary frequency, and bladder pressure. She reports despite compliance with Pepcid she continues with these symptoms. In office urinalysis results reviewed with the patient today negative leukocytes negative nitrates and trace microscopic hematuria. She denies urinary incontinence, fever, chills, and or foul-smelling urine. We discussed potential causes of lower urinary tract symptoms patient is experiencing as well as further treatment options and risks and benefits of these treatment options. We discussed obtaining retroperitoneal ultrasound for further assessment evaluation. Educated and encouraged on the importance of drinking plenty of water daily. We also discussed importance of following up as planned as patient was last seen 02/2023 at which time recommendations were made for three-month follow-up however this was never followed through with. We discussed possible near future in office cystoscopy however will trial medications at this time. [facility] Medical History Diverticulosis delivery delivered Interstitial cystitis History of UTI Interstitial cystitis Surgical History History of Hx of colonoscopy Hx of tubal ligation Family History Mother Diabetes Father Stroke Social History Household Members: Family Alcohol intake: never Patient Tobacco Use Status: Never used Tobacco service: No Current occupational exposures/hazards: No Review of Systems Const Reports no additional complaints Eyes Reports no additional complaints ENT Details: patient reports having seasonal allergies Reports no additional complaints Card Reports no additional complaints Resp Reports no additional complaints GI Reports no additional complaints Reports as per HPI Musc Details: Patient reports having recent x-ray imaging with PCP and being diagnosed with arthritis of the left hip Reports no additional complaints Neuro Reports no additional complaints Psych Reports no additional complaints Endo Reports no additional complaints Quan/Lymph Reports no additional complaints Aller/Immun Reports no additional complaints Physical Exam Const General: cooperative, healthy appearing, comfortable, no acute distress, well developed, alert and awake Nutritional Appearance: overweight Orientation/consciousness: patient oriented x3 Limitations: no limitations HEENT Head: Yes normal to inspection, Yes normocephalic and Yes atraumatic Ears: hearing grossly normal bilaterally Neck Neck: Yes normal visual inspection and Yes trachea midline Chest Chest palpation & inspection: normal inspection of the chest Resp Effort & Inspection: normal respiratory effort and able to speak in complete sentences Cardio Rate: regular rate General: Yes no CVA tenderness Back/Spine/Pelvis Back: no CVA tenderness Cervical Spine: normal cervical lordosis Neuro General: patient oriented x3 Extrem General: Yes normal to inspection Psych Appearance: grossly normal and well kempt Mental Status: mental status grossly normal Speech and movement: Normal speech and movement present and Clear speech present Affect: normal affect Attitude: cooperative Thought process: Normal thought process present Thought content: Normal thought content present Insight: Fair insight present (Psych) Judgement: Fair judgement present (Psych) Office Procedures Post Void Residual Post Residual Void Post Void Residual (PVR): 0 [id number] Void Residual by ultrasound Results AMB Urinalysis, Automated UA Leukoctes 15 [place]/uL Last Edit by [employer] on 10/07/24 15:11 UA Nitrite Last Edit by [employer] on 10/07/24 15:11 UA Urobilinogen 0.2 mg/dL Last Edit by [employer] on 10/07/24 15:11 UA Protein 0 mg/dL Last Edit by [employer] on 10/07/24 15:11 UA pH 7.0 Last Edit by [employer] on 10/07/24 15:11 UA Blood 10 Per/uL Last Edit by [employer] on 10/07/24 15:11 UA Specific [place] 1.015 Last Edit by [employer] on 10/07/24 15:11 UA Ketone Last Edit by [employer] on 10/07/24 15:11 UA Bilirubin 0 mg/dL Last Edit by [employer] on 10/07/24 15:11 UA Glucose 0 mg/dL Last Edit by [employer] on 10/07/24 15:11 Results Reviewed Results Reviewed: Laboratory Last Values Urine pH (Auto) 7.0 10/07/24 15:10 Specific [place] (Auto) 1.015 10/07/24 15:10 Urine Protein (Auto) 0 mg/dL 10/07/24 15:10 Glucose (UA)(Auto) 0 mg/dL 10/07/24 15:10 Urine Blood (Auto) 10 Per/uL 10/07/24 15:10 Urine Bilirubin (Auto) 0 mg/dL 10/07/24 15:10 Urine Urobilinogen (Auto) 0.2 mg/dL 10/07/24 15:10 Leukocyte Esterase (Auto) 15 [place]/uL 10/07/24 15:10 Assessment & Plan Assessment & Plan (1) Interstitial cystitis: Code(s): N30.10 - Interstitial cystitis (chronic) without hematuria Category: Medical (2) Microscopic hematuria: Code(s): R31.29 - Other microscopic hematuria Category: Medical Plan In office urinalysis results reviewed with the patient today; will send for urine cytology. We discussed bladder triggers/irritants. Will obtain retroperitoneal ultrasound for further assessment evaluation. We discussed importance of following up as planned as patient was last seen February of 2023. We discussed potential causes of interstitial cystitis as well as further treatment options and risks and benefits of these treatment options. Start oxybutynin as discussed and prescribed. We discussed potential near future in office cystoscopy for further assessment evaluation. Follow-up in 1-3 months with imaging and PVR; or sooner with any issues, concerns, and or questions. Orders: Orders AMB Urinalysis Automated Today Z13.9 - Encounter for screening, unspecified AMB Post Void Residual by ultrasound Today N30.10 - Interstitial cystitis (chronic) without hematuria US retroperitoneal comp Today N30.10 - Interstitial cystitis (chronic) without hematuria, R31.29 - Other microscopic hematuria Urine Cytology Today R31.29 - Other microscopic hematuria Medications: New oxybutynin chloride ER 10 mg PO DAILY 30 days 30 tabs 3RF N32.81 - Overactive bladder Patient Instructions: The patient had an opportunity to ask questions regarding the treatment plan. All questions were answered. Physical exam, labs, and imaging were discussed and reviewed in detail. As well as risks, benefits, and discussion of treatment choices. No major barriers to understanding were identified. The patient expressed understanding and agreement with the above treatment plan. The patient was made aware they should contact our office by phone for worsening of their current condition, the appearance of new symptoms, or with any questions or concerns. Compliance is encouraged with any medications and follow up testing that is ordered. It is a privilege to be allowed the opportunity to participate in? your urological care.? Again, if you have any questions or concerns If you have any questions or concerns please do not hesitate to contact me. The office is [phone]. This note is constructed using voice recognition software. While every effort has been made to ensure accuracy customer engineering specialist errors may have been included. Yours sincerely, DENNY Shepherd-TATUM Coding Level of Care Code Est Pt Level 4 (14926) Complex EM visit Add On G2211 Diagnoses Interstitial cystitis N30.10 Microscopic hematuria R31.29 CPT Codes Post Residual Void - PVR CPT Code: 76298-Sxhf Void Residual by ultrasound ([id number])
== END 2024-10-07 15:37 | disposition home or self-care (01) ==
LOC: HO.HUSH 14:29
PROVIDERS: PCP Internal Medicine; Visit Provider Nurse Practitioner Family
DX: N30.10 Interstitial cystitis (chronic) without hematuria (principal); R31.29 Other microscopic hematuria; Z13.9 Encounter for screening, unspecified
CPT/HCPCS: 99214

== ENCOUNTER 2024-10-07 14:29 | Outpatient (REF) | payer MEDICAID, SELFPAY ==
[2024-10-07 17:03] LABS: Urine Cytology See Pathology rpt
== END 2024-10-07 14:30 | disposition home or self-care (01) ==
LOC: HO.LNP 14:29
PROVIDERS: PCP Internal Medicine; Visit Provider Nurse Practitioner Family
DX: N30.10 Interstitial cystitis (chronic) without hematuria (principal); R31.29 Other microscopic hematuria
CPT/HCPCS: 51798; 81003; 88112; 99212

== ENCOUNTER 2024-10-25 10:14 | Outpatient (REF) | payer MEDICAID, SELFPAY ==
--- OUTSIDE RECORDS SUMMARY | 2024-10-25 11:03 | XMS_ITS | Encounter Summary ---
Author Organization [employer] Address [address] [place] [address] Care Team Providers Care Nailer Hand Name Role Phone Gladys Coleman MD Primary Care Provider + Reason for Referral * Imaging (Routine) - Authorized Specialty Diagnoses / Procedures Referred By Vamsi huang Referred To Contact Radiology Diagnoses Screening mammogram for breast cancer Procedures BI Mammogram Screening Tomosynthesis Bilateral Gladys Coleman MD [address] [place] [phone] Phone: tel: fax: [address] Phone: tel: fax: Referral ID Status Reason Start Date Expiration Date V isits Requested Visits Authorized [id number] Authorized 10/25/2024 10/25/2025 1 1 Reason for Visit * Reason Comments Annual Exam Encounter Details Date Type Department Care Team (Latest Contact Info) Description 10/25/2024 9:15 AM EDT Office Visit [facility] [address] [place] [address] [phone] Gladys Coleman MD [address] [place], [place] [phone] Acute rhinosinusitis (Primary Dx); Encounter for preventive health examination; Pelvic pain; Numbness and tingling; Vitamin D deficiency; Primary hypertension; Weight loss; Seborrheic dermatitis; Screening mammogram for breast cancer; Nasal congestion Social History Tobacco Use Types Packs/Day Years Used Date Smoking Tobacco: Never Passive Smoke Exposure: Never Smokeless Tobacco: Never Tobacco Cessation:Counseling Given: Not Answered Alcohol Use Standard Drinks/Week Comments Never 0 (1 standard drink = 0.6 oz pur e alcohol) Depression Answer Date Recorded Patient Health Questionnaire-9 Score 14 10/25/2023 Patient Health Questionnaire-9 Score 14 10/25/2023 Last PHQ-9: Questionnaire Data Not on file 0 10/25/2023 Housing Stability Answer Date Recorded What is your housing situation today? I have bret crawford 10/25/[address] you li ve. Do you have problems with any of the following? None of the above 10/25/2023 Food Insecurity Answer Date Recorded Within the past 12 months, y ou worried that your food would run out before you got money to buy more: Sometimes True 2023 Within the past 12 months,th e food you bought just didn't last and you didn't have enough money to get more: Sometimes True 10/25/2023 Transportation Answer Date Recorded In the past 12 months, has l ack of transportation kept you from medical appts, meetings, work or from getting things needed for daily living? No 10/25/2023 Utilities Answer Date Recorded In the past 12 months, has t he electric, gas, oil or water company threatened to shut off services in your home? Yes 10/25/2023 Depression Answer Date Recorded Patient Health Questionnaire-2 Score 2 10/25/2023 Comments No Sex and Gender Information Value Date Recorded Sex Assigned at Female 05/16/2022 10:36 AM EDT Legal Sex Female 10:36 AM EDT Gender Identity Female 05/16/2022 10:36 AM EDT Sexual Orientation Straight 05/16/2022 10 :36 AM EDT documented as of this encounter Last Filed Vital Signs Vital Sign Reading Time Taken Comments Blood Pressure 126/68 10/25/2024 9:26 AM EDT Pulse 70 10/25/2024 9:26 AM EDT Temperature 36.4 ??C (97.6 ??F) 10/25/2024 9:26 AM ED T Respiratory Rate - - Oxygen Saturation 100% 10/25/2024 9:26 AM EDT Inhaled Oxygen Concentration - - Weight 67.8 kg (149 lb 8 oz) 10/25/2024 9:26 AM EDT Height 147.3 cm (4' 10 ) 10/25/2024 9:26 AM EDT Body Mass Index 31.25 10/25/2024 9:26 AM EDT documented in this encounter Miscellaneous Notes * Assessment & Plan Note - Gladys Coleman MD - 10/25/2024 10:18 AM EDT Associated Problem(s): Encounter for preventive health examination Patient here for PE. -PAP smear: UTD, next 1 due 2028 -Colonoscopy: UTD, next 1 due 2031 -Mammogram: UTD, next 1 due this month, will order mammogram. -Ophthalmology: Overdue, she missed last month's appointment. I advised her to go to the eye clinicand to schedule appointment -Labs: Overdue for lipid profile. -Dental visit: UTD, she is getting set for dental implants -Adult IZ: COVID and influenza are overdue, she refused immunizations today. -Safety: Feels safe at home and is able to reach out for safety -Intimate Partner Violence Screening: Negative -In Relationship: Yes -STI screenin is negative -Hx STI/concern? None, she is not sexually active thank you Tylenol as is low February -Not Interested in PrEP -Advance directives: Information regarding healthcare proxy provided today * Assessment & Plan Note - Gladys Coleman MD - 10/25/2024 10:15 AM EDT Associated Problem(s): Seborrheic dermatitis Fluocinolone dermal oil to scalp on earlobes twice daily x 1 week then once daily x 3w then as needed * Assessment & Plan Note - Gladys Coleman MD - 10/25/2024 10:15 AM EDT Associated Problem(s): Acute rhinosinusitis Rapid viral test are negative today Rest (sleep at least 8 hours a night). Hydrate with plenty of water (avoid caffeine and alcohol). Use saline nose drops to loosen mucus + Flonase Take Acetaminophen (Tylenol??)/Ibuprofen as needed to reduce fever, headache, body aches or discomfort Gargle with salt water and use throat sprays/lozenges for throat pain. Use heated, humidified air. If you do not have a humidifier, take hot showers. Cover coughs and sneezes using the crook of your elbow. If you have a fever, stay home and away from others (self isolation) until fever-free for 72 hours (temperature should be less than 100??F without medication). * Assessment & Plan Note - Gladys Coleman MD - 10/25/2024 10:14 AM EDT Associated Problem(s): Weight loss Lost 10 pounds within 1 year, reportedly related to healthier diet? Update mammogram, Pap smear and colonoscopy are up-to-date Follow-up in 2 months * Assessment & Plan Note - Gladys Coleman MD - 10/25/2024 10:13 AM EDT Associated Problem(s): Vitamin D deficiency Re check vit D Continue being off Vit D Advised re outdoor excercise * Assessment & Plan Note - Gladys Coleman MD - 10/25/2024 10:12 AM EDT Associated Problem(s): Primary hypertension Controlled. Compliant w/meds Continue lisinopril 5mg + hctz Counseled re low salt diet/increase moderate physical activity. Check home BP BIW and prn CP/RESENDIZ/SUGGS Non smoking patient. FU in 6m * Assessment & Plan Note - Gladys Coleman MD - 10/25/2024 10:11 AM EDT Associated Problem(s): Pelvic pain CT scan abdomen pelvis has been within normal limits, showing constipation. She also has interstitial cystitis. Started on Senokot daily, hold for diarrhea Follow-up with urology for IC Recommended increased water intake and keep food/symptoms diary * Assessment & Plan Note - Gladys Coleman MD - 10/25/2024 10:10 AM EDT Associated Problem(s): Numbness and tingling On both legs, associated to hip pain, rule out trochanteric bursitis Referred to PT, take Tylenol as needed Order labs ro neuropthy documented in this encounter Plan of Treatment Upcoming Encounters Date Type Department Care Team (Late st Contact Info) Description 01/14/2025 9:00 AM EDT Office Visit [facility] [address] [place] [address] [phone] Gladys Coleman MD [address] [place], [place] [phone] Scheduled Orders Name Type Priority Associated Diagnoses Orde r Schedule BI Mammogram Screening Tomosynthesis Bilateral Imaging Routine Screening mammogram for breast cancer Expected: 10/25/2024 (Approximate), Expires: 12/25/2025 Vitamin D, 25-Hydroxy, Total, Immunoassay Lab Routine Vitamin D deficiency Expected: 10/25/2024 (Approximate), Expires: 10/25/2025 Lipid Panel with Reflex to Direct LDL Lab Routine Primary hypertension Expected: 10/25/2024 (Approximate), Expires: 10/25/2025 Hemoglobin A1c Lab Routine Numbness and tingling Expected: 10/25/2024 (Approximate), Expires: 10/25/2025 Lyme Disease Ab with Reflex to Blot (IgG, IgM) Lab Routine Numbness and tingling Expected: 10/25/2024, Expires: 10/25/2025 Vitamin B12/Folate, Serum Panel Lab Routine Numbness and tingling Expected: 10/25/2024, Expires: 10/25/2025 Glucose, Fasting Lab Routine Numbness and tingling Expected: 10/25/2024 (Approximate), Expires: 10/25/2025 Syphilis Screen Lab Routine Numbness and tingling Expected: 10/25/2024 (Approximate), Expires: 10/25/2025 TSH with Reflex to Free T4 Lab Routine Numbness and tingling Expected: 10/25/2024 (Approximate), Expires: 10/25/2025 documented as of this encounter Procedures Procedure Name Priority Date/Time Associated Diagnosis Comments POCT INFLUENZA B Routine 10/25/2024 9:29 AM EDT Nasal congestion POCT INFLUENZA A Routine 10/25/2024 9:29 AM EDT Nasal congestion POCT RAPID COVID ANTIGEN Routine 10/25/2024 9:27 AM EDT Nasal congestion documented in this encounter Results * POCT Rapid Influenza B OSOM (10/25/2024 9:29 AM EDT) [facility] Rapid Influenza B Ag Negative Negative, Indeterminate QC Media Lot # [id number] Lot# Expiration Date [id number] Swab 10/25/2024 9:29 AM EDT Gladys Coleman MD POINT OF CARE TEST ENTER /EDIT ORDERABLES Final Result * POCT Rapid Influenza A OSOM (10/25/2024 9:29 AM EDT) [facility] Rapid Influenza A Ag Negative Negative, Indeterminate QC Media Lot # [id number] Lot# Expiration Date 53,125 Swab Nasopharyngeal structure / Unknown 10/25/2024 9:29 AM EDT Gladys Coleman MD POINT OF CARE TEST ENTER /EDIT ORDERABLES Final Result * POCT Rapid Covid-19 BinaxNOW (10/25/2024 9:27 AM EDT) Rapid COVID Ag Negative QC Media Lot # [id number] Lot# Expiration Date 08,026 Swab 10/25/2024 9:27 AM EDT Gladys Coleman MD POINT OF CARE TEST ENTER /EDIT ORDERABLES Final Result documented in this encounter Visit Diagnoses Diagnosis Acute rhinosinusitis- Primary Encounter for preventive health examination Pelvic pain Numbness and tingling Disturbance of skin sensation Vitamin D deficiency Primary hypertension Unspecified essential hypertension Weight loss Loss of weight Seborrheic dermatitis Unspecified seborrheic dermatitis Screening mammogram for breast cancer Nasal congestion Other diseases of nasal cavity and sinuses documented in this encounter Additional Health Concerns Assessment Noted Time PHQ-9 Depression Total Score: 14 024 11:41 AM EDT documented as of this encounter Care Teams Nailer Hand Relationship Specialty Start Date End Date Gladys Coleman MD [address] [place] [phone] PCP - General Family Medicine 09/06/19 documented as of this encounter
--- OUTSIDE RECORDS SUMMARY | 2024-10-25 11:03 | XMS_ITS | Encounter Summary ---
Author Organization [employer] Address [address] [facility] 7[address] [place] [address] Care Team Providers Care Inspector General Name Role Phone Gladys Coleman MD Primary Care Provider + Reason for Visit * Reason Onset Date Comments Chart prep 2024 Encounter Details Date Type Department Care Team ([facility] st Contact Info) Description 2024 Telephone [facility] [address] [place], [place] [phone] Gladys Coleman MD [address] [place], [place] [phone] Chart prep Social History Tobacco Use Types Packs/Day Years Used Date Smoking Tobacco: Never Passive Smoke Exposure: Never Smokeless Tobacco: Never Alcohol Use Standard Drinks/Week Comments Never 0 [...] AM EDT documented as of this encounter Miscellaneous Notes * Telephone Encounter - Estefania Tavares [place] - 2024 10:20 AM EDT Chart Prep Labs: done Images: done Vaccines due: yes Referrals: complete Screenings: Up to date Overdue care gaps: Disability screen documented in this encounter Plan of Treatment Upcoming Encounters Date Type Department Care Team (Late st Contact Info) Description 01/14/2025 9:00 AM EDT Office Visit [facility] [address] [place] [phone] Gladys Coleman MD [address] [place] [address] documented as of this encounter Visit Diagnoses Not on filedocumented in this encounter Additional Health Concerns Assessment Noted Time PHQ-9 Depression Total Score: 14 024 11:41 AM EDT documented as of this encounter Care Teams Inspector General Relationship Specialty Start Date End Date Gladsy Coleman MD [address] [place] [phone] PCP - General Family Medicine 09/06/19 documented as of this encounter
--- OUTSIDE RECORDS SUMMARY | 2024-10-25 11:03 | XMS_ITS | Clinical Summary ---
Author Organization [employer] Address [address] [facility] [address] [place] [address] Care Team Providers Care Sampler First Name Role Phone Gladys Coleman MD Primary Care Provider + Allergies Active Allergy Reactions Criticality Noted Date Comments Aspirin Unknown 12/20/2019 Naproxen 12/20/2019 Sulfa Antibiotics 12/20/2019 Medications phenazopyridin e (Pyridium) 100 MG tablet take 1 tablet by oral route 3 times every day after meals as needed 01/08/20 21 Active lamoTRIgine (LaMICtal) 100 MG tablet Take 1 tablet by mouth twice daily with 25mg tablets (Total dose 125mg BID) Active lamoTRIgine (LaMICtal) 25 MG tablet Take 1 tablet by mouth twice daily with 100mg tablets (Total dose 125mg BID) Active cyclobenzaprin e (Flexeril) 5 MG tabletIndicati ons:Episodic tension-type headache, not intractable take 1 tablet by oral route qhs x 1w then 1x/d prn pain 30 tablet 3 08/11/19 24 Active lisinopril 5 MG tablet TAKE 1 TABLET BY MOUTH EVERY MORNING 90 tablet 1 03/13/20 24 Active hydroCHLOROthi azide (Microzide) 12.5 MG capsule TAKE 1 CAPSULE BY MOUTH EVERY MORNING 90 capsule 1 03/13/20 24 Active fluticasone (Flonase) 50 MCG/ACT nasal spray Administer 1 spray into each nostril Once per day. 16 g 10/26/19 25 025 Active acetaminophen (Tylenol Extra Strength) 500 MG tablet 1 tab PO tid prn headache/feve r/pain 60 tablet 10/26/19 25 Active cetirizine (ZyrTEC) 10 MG tablet Take 1 tablet (10 mg) by mouth Once per day. 30 tablet 2 10/26/19 25 025 Active senna-docusate sodium (Senokot-S) 8.6-50 MG tablet Take 1 tablet by mouth Once per day. 30 tablet 1 10/26/19 25 026 Active fluocinolone (Synalar) 0.01 % external solution Apply topically 2 times daily. 60 mL 1 10/26/19 25 Active acetaminophen (Tylenol Extra Strength) 500 MG tablet 2 tabs po daily prn pain 60 tablet 02/12/20 24 Discontinued(Re order (will not trigger notification to Pharmacy)) fluticasone (Flonase) 50 MCG/ACT nasal spray Administer 1 spray into each nostril Once per day. 16 g 03/08/20 24 025 Discontinued(Re order (will not trigger notification to Pharmacy)) Active Problems Problem Noted Date Diagnosed Date Acute rhinosinusitis 10/25/2024 Assessment & Plan (10/25/2024 10:15 AM EDT): Rapid viral test are negative today Rest [...] should be less than 100??F without medication). Numbness and tingling 10/25/2024 Assessment & Plan (10/25/2024 10:10 AM EDT): On both legs, associated to hip pain, rule out trochanteric bursitis Referred to PT, take Tylenol as needed Order labs ro neuropthy Seborrheic dermatitis 10/25/2024 Assessment & Plan (10/25/2024 10:15 AM EDT): Fluocinolone dermal oil to scalp on earlobes twice daily x 1 week then once daily x 3w then as needed Weight loss 10/25/2024 Assessment & Plan (10/25/2024 10:14 AM EDT): Lost 10 pounds within 1 year, reportedly related to healthier diet? Update mammogram, Pap smear and colonoscopy are up-to-date Follow-up in 2 months Viral upper respiratory tract infection 03/08/20 Assessment & Plan (03/08/2024 12:19 PM EDT): Use Flonase nasal spray daily x 5d Take tylenol prn fever, chills, RESENDIZ, sore throat. Advised to check for covid and call back PRN pos result. She has covid kits at home. Advised to call back prn worsening of sxs or come to [facility]. Encounter for cervical Pap smear with pelvic exa m 12/08/2023 Assessment & Plan (12/08/2023 11:24 AM EDT): Pelvic exam today wnl FU pap smear results/HPV/STI testing and will call back PRN positive results or FU in 3 months Pt feels safe at home no concern for DV/STDs Counseled regarding STI prevention If today's pap smear/co testing is normal next one will be due in 5 years. Fu vaginal swab results and Tx PRN Encounter for colorectal cancer screening 2023 Left-sided chest pain 10/25/2023 Assessment & Plan (10/25/2023 3:33 PM EDT): Likely muscular from chronic cough after URI Take tylenol prn, apply warm compresses to affected area Order CXR and Ribs Xray to ro rib fracture from cough. Acute left flank pain 10/25/2023 Assessment & Plan (11/10/2023 9:16 AM EDT): Recurrent, does not seem to be an issue now Fu renal US, will check w/ hospital about her appointment Fu in 1 m Assessment & Plan (10/25/2023 3:31 PM EDT): Its likely muscular, due to history of hematuria last year, I will order renal US FU with me in 2w Take tylenol prn pain Breast pain, left 10/25/2023 Assessment & Plan (10/25/2023 3:33 PM EDT): It seems to be muscular. I will order dx left mammogram and US due to quadrant location. Subacute cough 08/11/2023 Assessment & Plan (10/25/2023 3:32 PM EDT): - residual, most likely from URI - increased water intake, advised about vapor shower and to gargle with warm water and salt Assessment & Plan (08/11/2023 2:05 PM EST): Residual from URI, recommended increase water intake and use tessalon capsules prn Ingrown hair 08/11/2023 Assessment & Plan (08/11/2023 2:06 PM EST): Pubic area. Reassurance, recommended heat to effected area and avoid poking on the lesion Will fu at next visit or prn Primary hypertension 08/11/2023 Assessment & Plan (10/25/2024 10:12 AM EDT): Controlled. Compliant w/meds Continue lisinopril 5mg + hctz Counseled re low salt diet/increase moderate physical activity. Check home BP BIW and prn CP/RESENDIZ/SUGGS Non smoking patient. FU in 6m Assessment & Plan (08/11/2023 2:07 PM EST): Controlled. Compliant w/meds Continue lisinopril 5mg + hctz Counseled re low salt diet/increase moderate physical activity. Check home BP BIW and prn CP/RESENDIZ/SUGGS Non smoking patient. Encounter for preventive health examination 11/2022 Assessment & Plan (10/25/2024 10:18 AM EDT): Patient here for PE. -PAP smear: UTD, next 1 due 2028 -Colonoscopy: UTD, next 1 due 2031 -Mammogram: UTD, next 1 due this month, will order mammogram. -Ophthalmology: Overdue, she missed last month's appointment. I advised her to go to the eye clinic and to schedule appointment -Labs: Overdue for lipid [...] she is not sexually active thank you Martin as is low February -Not Interested in PrEP -Advance directives: Information regarding healthcare proxy provided today Assessment & Plan (10/19/2022 11:19 AM EDT): Discussed with patient re increase fresh fruit and vegetable intake. Counseled re moderate exercise as tolerated, up to 20min/d Patient feels safe at home. PAP smear up to date, next one due on 2025 Mammogram TBO Eye exam up to date, next one due on January 2023 CRC screen up to date, next one due 2031 Lipids/FBS TBO Vaccinations agreed to influezna and Covid booster today order immune titers and FU next month Dental visit up to date, appointment scheduled for December 2022 Anxiety 07/14/2022 Arachnoid cyst 07/14/2022 Overview (04/27/2023): CT [place] head [place]/11/22 [place] showed a ...stable high left parietal extra-axial CSF collection remodeling the inner cortical table of the left parietal calvarium with extension nearly to the roof of the left lateral Ventricle...... Assessment & Plan (08/11/2023 2:01 PM EST): Seen by neurosurgery, no surgical intervention needed at this time Will obtain notes from urology, FU w/ pt in 3 m. May need second opinion given pt has visual field abnormalities that may or not be related to cyst Atypical chest pain 07/14/2022 Assessment & Plan (11/10/2023 9:17 AM EDT): Resolved, seems to be muscular 2/2 to chronic long episode of cough Calcific tendinitis of left shoulder 07/14/2022 Assessment & Plan (10/19/2022 11:28 AM EDT): Significantly improved after PT Continue exercises + Tylenol PRN Assessment & Plan (07/19/2022 3:53 PM EST): Continue Tylenol prn + Advised to come to acupuncture clinic Use Diclofenac gel Patient will bring info re PT office she wants to be referred to, so I can make that referral. She agreed with that POC Chronic interstitial cystitis 07/14/2022 Chronic low back pain 07/14/2022 Chronic left shoulder pain 07/14/2022 Cyst of ovary 07/14/2022 Assessment & Plan (12/08/2023 11:24 AM EDT): Physiological, no need to fu Assessment & Plan (11/10/2023 9:16 AM EDT): Fu pelvic US Has PAP smear w/ me in 1 m Assessment & Plan (10/25/2023 3:32 PM EDT): Fu pelvic US Dysuria 07/14/2022 Electrocardiogram abnormal 07/14/2022 Epigastric pain 07/14/2022 Assessment & Plan (03/08/2024 12:33 PM EDT): ? Related to Lamictal? Unclear as of why she developed it just recently as she's been on the same meds for few years now. Will ro PUD, use Sucralfate bid ac breakfast and dinner x 1mo and fu with me prn persistent abd pain, will do further w/u Episodic tension-type headache 07/14/2022 Assessment & Plan (08/11/2023 2:02 PM EST): Unclear if related to decreased vision, they're easily controlled with tylenol once /wk Obtain urology notes Epistaxis, recurrent 07/14/2022 Near syncope 07/14/2022 Obstructive sleep apnea syndrome 07/14/2022 Assessment & Plan (10/19/2022 11:28 AM EDT): Pt followed at [facility] [place] FU with sleep center after sleep study Pelvic pain 07/14/2022 Assessment & Plan (10/25/2024 10:11 AM EDT): CT scan abdomen pelvis has been within normal limits, showing constipation. She also has interstitial cystitis. Started on Senokot daily, hold for diarrhea Follow-up with urology for IC Recommended increased water intake and keep food/symptoms diary Assessment & Plan (03/08/2024 12:23 PM EDT): CT scan report is pending, will fu with [facility] radiology and call patient back with results. Advised to take tylenol prn, advised that it could be re to physiological cyst, re consult prn UTI sxs (hx IC) Assessment & Plan (02/12/2024 5:08 PM EDT): Ro ovarian cyst vs IC (Already dx) CT scan is pending Take Tylenol prn pain FU in 6w TV Assessment & Plan (12/08/2023 11:24 AM EDT): R/o vaginitis Order CT scan of pelvis and abd, r/o other intraabdominal pathology Perimenopause 07/14/2022 Pityriasis versicolor 07/14/2022 Primary osteoarthritis of left hip 07/14/2022 Assessment & Plan (07/19/2022 3:53 PM EST): See above, awaiting for PT office info for referral. FU in 3m Recurrent urinary tract infection 07/14/2022 Rosacea 07/14/2022 Seizure 07/14/2022 Assessment & Plan (08/11/2023 2:03 PM EST): Controlled, hasn't had a seizure in more than 3 yrs Continue Lamictal 100mg BID Spasm 07/14/2022 Vitamin D deficiency 07/14/2022 Assessment & Plan (10/25/2024 10:13 AM EDT): Re check vit D Continue being off Vit D Advised re outdoor excercise Assessment & Plan (03/08/2024 12:21 PM EDT): Complete Vit D x 3mo Advised re outdoor activities for at least 15min per day. Encounters Date Type Department Care Team Description 10/25/2024 9:15 AM EDT Office Visit [address] [address] Gladys Coleman MD Acute rhinosinusitis (Primary Dx); Encounter for preventive health examination; Pelvic pain; Numbness and tingling; Vitamin D deficiency; Primary hypertension; Weight loss; Seborrheic dermatitis; Screening mammogram for breast cancer; Nasal congestion 10/25/2024 Travel [address] [address] Gladys Coleman MD Chart prep 10/16/2024 Patient Outreach [address] [address] Gladys Coleman MD Pre-visit Planning ((Unable to reach for PVP screening, LVM)) 10/07/2024 Orders Only GENERIC EXTERNAL DATA DEPARTMENT Provider, Generic External Data 10/03/[address] [address] Gladys Coleman MD Med Refill 09/27/2024 Population Health Risk Score [facility] [address] [address] Provider, Population Health Generic 09/03/[address] [address] Gladys Coleman MD Chart prep 08/22/2024 Patient Outreach [address] [address] Gladys Coleman MD Pre-visit Planning ((Unable to reach for PVP screening and or LVM)) from Last 3 Months Immunizations Name Administration Dates Next Due Influenza injectable quadriv alent IIV4 with preservative 09/06/2019 Influenza injectable quadriv alent preservative free 05/06/2021,08/25/2020 Pfizer Covid-19 Vaccine 12+ 09/24/2021,,11/20/2020 Tdap 05/06/2021 Social History Tobacco Use Types Packs/Day Years [...] Orientation Straight 05/16/2022 10 :36 AM EDT Last Filed Vital Signs Vital Sign Reading Time Taken Comments Blood Pressure 126/68 10/25/2024 9:26 AM EDT Pulse 70 10/25/2024 9:26 AM EDT Temperature 36.4 ??C (97.6 ??F) 10/25/2024 9:26 AM ED T Respiratory Rate 12 02/12/2024 3:45 PM EDT Oxygen Saturation 100% 10/25/2024 9:26 AM EDT Inhaled Oxygen Concentration - - Weight 67.8 kg (149 lb 8 oz) 10/25/2024 9:26 AM EDT Height 147.3 cm (4' 10 ) 10/25/2024 9:26 AM EDT Body Mass Index 31.25 10/25/2024 9:26 AM EDT Plan of Treatment Upcoming Encounters Date Type Department Care Team (Late st Contact Info) Description 01/14/2025 9:00 AM EDT Office Visit [facility] [address] [place], [place] [phone] Gladys Coleman MD [address] [place], [place] [phone] Health Maintenance Due Date Last Done Comments CT Colonography 1975 FIT DNA/Cologuard 1975 FIT 1975 FOBT 1975 HIV Screening 1975 Sigmoidoscopy 1975 Alcohol/Substance Use Screening 1988 Family Planning (PISQ) 10/24/1991 Hepatitis B Vaccines (1 of 3 - 19+ 3-dose series) 10/24/1995 COVID-19 Vaccine ( season) 2024 09/24/2021, 12/11/2020, 11/20/2020 Influenza Vaccine (#1) 2024 , 08/25/2020, 09/06/2019 Depression Monitoring 04/25/2024 10/25/2023, 024 Depression Screening 10/24/2024 10/25/2023, 10/25/19 24 SDOH Screening 10/24/2024 10/25/2023 Mammogram 11/08/2024 11/09/2023, 10/16, 12/02/2022, Additional history exists Tobacco Screening 10/25/2025 10/25/2024 Zoster Vaccines (1 of 2) 2026 Cervical Cancer Screening 12/07/2028 HPV/Cotest 12/07/2028 12/08/2023, 10/29/2020 Lipid Panel 12/07/2028 12/08/2023, 10/15, 12/10/2020 Pap Smear 12/07/2028 12/08/2023, 10/15, 10/29/2020 DTaP/Tdap/Td Vaccines (2 - Td or Tdap) 05/06/2031 05/06/2021 Colonoscopy 07/08/2032 Colorectal Cancer Screening 07/08/2032 RSV Patients and Patients Aged 60 years or older (1 - 1-dose 75+ series) 10/24/2051 Hepatitis C Screening Completed 10/25/2022 HIB Vaccines Aged Out No longer eligi ble based on patient's age to complete this topic HPV Vaccines Aged Out No longer eligi ble based on patient's age to complete this topic Hepatitis A Vaccines Aged Out No long er eligible based on patient's age to complete this topic IPV Vaccines Aged Out No longer eligi ble based on patient's age to complete this topic Meningococcal Vaccine Aged Out No woody noreen eligible based on patient's age to complete this topic Pneumococcal Vaccine: Pediatrics (0 to 5 Years) and At-Risk Patients (6 to 49) Years) Aged Out No longer eligible based on patient's age to complete this topic RSV under 20 months Aged Out No longe r eligible based on patient's age to complete this topic Rotavirus Vaccines Aged Out No longer eligible based on patient's age to complete this topic Procedures Procedure Name Priority Date/Time Associated Diagnosis Comments POCT INFLUENZA B Routine 10/25/2024 9:29 AM EDT Nasal congestion POCT INFLUENZA A Routine 10/25/2024 9:29 AM EDT Nasal congestion POCT RAPID COVID ANTIGEN Routine 10/25/2024 9:27 AM EDT Nasal congestion CYTOPATH-CELL ENHANCED Routine 3:15 PM EDT LIPID PANEL WITH REFLEX TO DIRECT LDL Routine 12/08/2023 11:56 AM EDT Atypical chest pain PAP SMEAR Routine 12/08/2023 10:00 AM EDT Encounter for cervical Pap smear with pelvic exam HPV MRNA E6/E7 REFLEX TO HPV 16, 18/45 Routine 12/08/2023 9:30 AM EDT Encounter for cervical Pap smear with pelvic exam BI MAMMOGRAM DIAGNOSTIC TOMOSYNTHESIS BILATERAL Routine 11/09/2023 9:30 AM EDT Breast pain, left HEPATITIS PANEL, GENERAL Routine 10/25/2022 12:34 PM EDT Encounter for preventive health examination from Last 3 Months or Most Recently Relevant to Health Maintenance Results * POCT Rapid Influenza B OSOM (10/25/2024 9:29 AM EDT) Pathologist [facility] Rapid Influenza B Ag Negative Negative, Indeterminate QC Media Lot # [id number] Lot# Expiration Date [id number] Swab 10/25/2024 9:29 AM EDT Gladys Coleman MD POINT OF CARE TEST ENTER /EDIT ORDERABLES Final Result * POCT Rapid Influenza A OSOM (10/25/2024 9:29 AM EDT) [facility] Rapid Influenza A Ag Negative Negative, Indeterminate QC Media Lot # [id number] Lot# Expiration Date 53,125 Swab Nasopharyngeal structure / Unknown 10/25/2024 9:29 AM EDT Gladys Coleman MD POINT OF CARE TEST ENTER /EDIT ORDERABLES Final Result * POCT Rapid Covid-19 BinaxNOW (10/25/2024 9:27 AM EDT) [facility] Rapid COVID Ag Negative QC Media Lot # [id number] Lot# Expiration Date 63,026 Swab 10/25/2024 9:27 AM EDT us Gladys Coleman MD POINT OF CARE TEST ENTER /EDIT ORDERABLES Final Result * Cytopath-cell enhanced (10/07/2024 3:15 PM EDT) 10/07/2024 3:15 PM EDT 10/08/2024 7:20 AM EDT Narrative [facility] - 10/09/2024 5:01 PM EDT ----- ------- Name: Briana Dueñas ? Age/Sex: 48/F ? : 1975 Unit#: [id number] ?? Attend DrElvira Dunaway [facility] ?Re10/07/24 ?Status: DEP REF ? Location: HO.LNP ?Disch: ? ----- ------- SPEC : [id number] ? RECD: 10/08/24 ? STATUS: ??SOUT ? REQ NUM: [id number] ? KIMBERLY: 10/07/24-1515 ? SUBM DR: Elvira Renee-BC ? ENTERED: ??10/08/24 ?SP TYPE: Cytology ? OTHR DR: Gladys Coleman MD ? ORDERED: ??Cyto-enhanced ? Diagnosis ?? Urine: ??Negative for high-grade urothelial carcinoma. ? Comment: ??Examination of a monolayer preparation slide shows many benign squamous cells ?? with bacteria, occasional benign urothelial cells, and occasional degenerated ?? inflammatory cells and red blood cells. ?Clinical History Other microscopic hematuria ? Material Received ?? Urine ? Gross Description Received is 55 cc of slightly cloudy yellow fluid from which a ThinPrep slide is prepared. Copies To: ?? Gladys Coleman MD ?? [facility] ?? [address] ?? [place] [address] ?? [phone] ?? Elvira Renee-BC ?? [facility] ?? [address] ?? [place] [address] ?? [phone] ?? [email or web address] ----- ------- Signed (signature on file) Geovanna Jill 10/09/24 170 ? ----- ------- ? END OF REPORT ? us Generic External Data Provider LAB CYTOLOGY MISTI FITZGERALD Final Result [facility] [address] [place] [address] [phone] * (ABNORMAL) Lipid Panel with Reflex to Direct LDL (12/08/2023 11:56 AM EDT) Triglycerides 69 <150 mg/dL [facility] Comment:Desirable Triglyceri de: less than 150 mg/dLBorderline High Triglyceride 150-199 mg/dLHigh Triglyceride: 200-499 mg/dLVery High Triglyceride: greater than or equal to 5OO mg/dL Cholesterol 168 <200 mg/dL [facility] Comment:Desirable Cholestero l: less than 200 mg/dLBorderline High Cholesterol: 200-239 mg/dLHigh Cholesterol: greater than 239 mg/dL LDL Cholesterol Calculated 101(H) <100 mg/dL [facility] Comment:Desirable LDL: less than 100 mg/dLNear Optimal/Above Optimal LDL: 110- 129 mg/dLBorderline High LDL: 130-159 mg/dLHigh LDL: 160-189 mg/dLVery High LDL: greater than or equal to 190 mg/dL HDL Cholesterol 54 >40 mg/dL [facility] Comment:Desirable HDL: great er than 40 mg/dL Note: This HDL assay may give artificially low results in patients with liver disease. Blood 12/08/2023 11:5 6 AM EDT 12/08/2023 1:13 PM EDT us Gladys Coleman MD LAB BLOOD ORDERABLES Fin al Result [facility] [address] [place] [phone] * Pap Smear (12/08/2023 10:00 AM EDT) Swab Cervix uteri structure / Unknown 12/08/2023 10:00 AM EDT 12/11/2023 10:00 AM EDT Narrative [facility] - 12/25/2023 4:49 PM EDT ----- ------- Name: Briana Dueñas ? Age/Sex: 48/F ? [facility] 1975 [id number] [id number] ?? Attend Dr: Gladys Coleman MD ?Re12/08/23 ?Status: DEP REF ? Location: [facility] ? Disch: ? ----- ------- SPEC : [id number] ?RECD: 12/11/23-999 ? STATUS: ??SOUT ? REQ NUM: [id number] ? KIMBERLY: 12/08/23-999 ? SUBM DR: Gladys Coleman MD ? ENTERED: ??12/11/23-1255 ?SP TYPE: Pap Smr ?OTHR : ? ORDERED: ??Pap Smear ? Interpretation ?? Satisfactory for evaluation. ?? Negative for intraepithelial lesion or malignancy. ? HPV mRNA E6/E7: ?NOT DETECTED ? This assay detects E6/E7 viral messenger RNA (mRNA) from 14 high-risk HPV types (16, 18, ?? 31, 33, 35, 39, 45, 51, 52, 56, 58, 59, 66, 68) ? HPV testing performed by [facility] [place], [place]. ??See reference laboratory ?? portion of the EMR for entire report. ?Clinical Information LMP:unk Previous PAP test:2021, wnl ? Material Received ?? ThinPrep-Cervical ----- ------- Signed (signature on file) Jaclyn Guillaume 12/25/231648 ? ----- ------- ? END OF REPORT ? us Gladys Coleman MD LAB CYTOLOGY ORDERABLES Final Result [facility] [address] [place] [phone] * HPV mRNA E6/E7 w/Reflex to HPV Genotypes 16, 18/45 (12/08/2023 9:30 AM EDT) HPV nRNA E6/E7 Not Detected Not Detected [facility] Comment:Methodology: Transcr iption-Mediated AmplificationThis assay detects E6/E7 viral messenger RNA (mRNA) from 14high-risk HPV types (16,18,31,33,35,39,45,51,52,56,58,59,66,68).Cervical sources are required for HPV testing.If a vaginal source from a patient who has had atotal hysterectomy with removal of cervix wassubmitted, please contact the testing laboratoryfor alternative testing options.For additional information, please refer [email or web address]/faq/OLT486y8(This link if provided for information/educational purposes only.)THIS TEST WAS PERFORMED AT:[facility] [place] [phone] ZELAYA MD HPV mRNA E6/E7 TNP [facility] HPV 16 RNA TNP [facility] HPV 18/45 RNA TNP [facility] Vaginal Fluid Cervix uteri structure / Unknown 12/08/2023 9:30 AM EDT 12/11/2023 10:00 AM EDT Gladys Coleman MD LAB CYTOLOGY ORDERABLES Final Result Performing Organization Address [facility]/State/[facility] Co de Phone Number [facility] [address] [place] [phone] * BI Mammogram Diagnostic Tomosynthesis Bilateral (11/09/2023 9:30 AM EDT) Anatomical Region Laterality Modality Breast Bilateral Mammography 11/09/2023 9:30 AM EDT Narrative 11/09/2023 10:40 AM EDT ? [facility] [place] ? [address] ?[place] [address] ? Mammography Report ? Signed ? Patient: Briana Dueñas ?MR#: ?? [id number] ? : 1975 ?Acct:[id number] ? Age/Sex: 48 / F ?ADM Date: 04/25/24 ? Loc: HO.MAMMO ? Attending Dr: Gladys Coleman MD ? Ordering Physician: Gladys Coleman MD ?Results: 1Ne ?? gative ? Date of Service: 11/09/23 ?Follow Up: 1 Year From Orig ?? inal Mammogram ? Procedure(s): MM tomosynthesis diagnostic BI ?? Accession Number(s): [id number] ? cc: Gladys Coleman MD ? EXAMINATION: ?? MM DIAGNOSTIC DIGITAL BREAST TOMOSYNTHESIS, BILATERAL ?? US BREAST LIMITED, LEFT ? MAMMOGRAPHY: ?? CLINICAL INFORMATION: ? 48-year-old female complaining of left breast pain spanning 12:00 to ?? 2:00 axis. No significant prior breast history. ? COMPARISON: ?? Mammography: 12/02/2022. ? TECHNIQUE: ?? Digital breast tomosynthesis is performed in both the craniocaudal and ?? mediolateral oblique views along with computer-aided detection (CAD). ?? Synthesized 2D images are generated from the tomosynthesis. In addition ?? to standard views, full-field digital 3-D left mediolateral view was ?? also included. ? FINDINGS: ?? The breasts are almost entirely fatty (ACR BI-RADS breast composition ?? Category a). ? Region of breast pain was marked by a pain marker in the far upper ?? outer left breast by the technologist. There is no underlying ?? mammographic abnormality identified. ??There are no suspicious masses, ?? suspicious grouped calcifications, or areas of architectural distortion ?? in either breast. The parenchymal pattern is stable from the prior ?? exam. ? ULTRASOUND: ?? CLINICAL INFORMATION: ?? Patient complaining of left breast pain spanning 12:00 to 2:00 axis. ? COMPARISON: ?? None ? TECHNIQUE: ?? Targeted sonographic evaluation was performed using a high frequency ?? linear transducer. Left breast upper outer quadrant was interrogated. ?? Selected archived documentation. ? FINDINGS: ? LEFT BREAST: There is predominantly fatty breast tissue present. No ?? suspicious mass is seen. ??There is no pathologic acoustic shadowing. ?? There is no axillary adenopathy. No cystic abnormalities. ?? There is no sonographic correlate to the region of left breast pain. ? MM/MM tomosynthesis diagnostic BI ?? IMPRESSION: ?? There are no findings suspicious for malignancy in either breast. ? Region of breast pain upper outer left breast shows no mammographic or ?? sonographic correlate. This should be managed clinically. ? Otherwise, recommend resuming routine annual mammography. ? OVERALL ASSESSMENT: ?? Mammography: BI-RADS 1 - Negative ?? Ultrasound: BI-RADS 1 - Negative ? RECOMMENDATION: ?? 1. Patient should be managed based on the clinical impression. ?2. ?? Otherwise, routine annual screening mammography. ? This patient's information was entered into a reminder system with a ?? target due date for their next mammogram. ? Dictated By: ?Osei Holt MD ? Signed By: ?<Electronically signed by Osei Holt MD in OV> ?11/09/23 1035 ? DD/ 0930 ? TD/TT: ? Emergency Department Manager: ? Procedure Note Sulma, Image - 11/09/2023 [facility] [address] [place] [address] Mammography Report Signed Patient: Zana DueñasEvelia#: [id number] : 1975Acct:[id number] Age/Sex: 48 / FADM Date: 11/09/23 Loc: HO.MAMMO Attending Dr: Gladys Coleman MD Ordering Physician: Gladys Colemanesults: 1Ne gative Date of Service: 11/09/23Follow Up: 1 Year From Orig inal Mammogram Procedure(s): MM tomosynthesis diagnostic BI Accession Number(s): [id number] cc: Gladys Coleman MD EXAMINATION: MM DIAGNOSTIC DIGITAL BREAST TOMOSYNTHESIS, BILATERAL US BREAST LIMITED, LEFT MAMMOGRAPHY: CLINICAL INFORMATION: 48-year-old female complaining of left breast pain spanning 12:00 to 2:00 axis. No significant prior breast history. COMPARISON: Mammography: 12/02/2022. TECHNIQUE: Digital breast tomosynthesis is performed in both the craniocaudal and mediolateral oblique views along with computer-aided detection (CAD). Synthesized 2D images are generated from the tomosynthesis. In addition to standard views, full-field digital 3-D left mediolateral view was also included. FINDINGS: The breasts are almost entirely fatty (ACR BI-RADS breast composition Category a). Region of breast pain was marked by a pain marker in the far upper outer left breast by the technologist. There is no underlying mammographic abnormality identified. There are no suspicious masses, suspicious grouped calcifications, or areas of architectural distortion in either breast. The parenchymal pattern is stable from the prior exam. ULTRASOUND: CLINICAL INFORMATION: Patient complaining of left breast pain spanning 12:00 to 2:00 axis. COMPARISON: None TECHNIQUE: Targeted sonographic evaluation was performed using a high frequency linear transducer. Left breast upper outer quadrant was interrogated. Selected archived documentation. FINDINGS: LEFT BREAST: There is predominantly fatty breast tissue present. No suspicious mass is seen. There is no pathologic acoustic shadowing. There is no axillary adenopathy. No cystic abnormalities. There is no sonographic correlate to the region of left breast pain. MM/MM tomosynthesis diagnostic BI IMPRESSION: There are no findings suspicious for malignancy in either breast. Region of breast pain upper outer left breast shows no mammographic or sonographic correlate. This should be managed clinically. Otherwise, recommend resuming routine annual mammography. OVERALL ASSESSMENT: Mammography: BI-RADS 1 - Negative Ultrasound: BI-RADS 1 - Negative RECOMMENDATION: 1. Patient should be managed based on the clinical impression. 2. Otherwise, routine annual screening mammography. This patient's information was entered into a reminder system with a target due date for their next mammogram. Dictated By: Osei Holt MD Signed By: <Electronically signed by Osei Holt MD in OV> 11/09/23 1035 DD/ 0930 TD/TT: Emergency Department Manager: us Gladys Coleman MD IMG BI PROCEDURES Final Result * Hepatitis Panel, General (10/25/2022 12:34 PM EDT) Hepatitis A Antibody Total NON-REACT CHU NON-REACT CHU [facility] Comment: For additional information, please refer to http://[employer]/faq/PQN763 (This link is being provided for informational/ educational purposes only.) Hepatitis B Surface Antibody QL NON-REACT CHU NON-REACT CHU [facility] [place] [employer] Hepatitis B Surface Ag NON-REACT CHU NON-REACT CHU [facility] Hepatitis B Core Antibody Total NON-REACT CHU NON-REACT CHU [facility] Hepatitis C Antibody NON-REACT CHU NON-REACT CHU [facility] Index 0.60 <1.00 [facility] Comment: HCV antibody was non-reactive. There is no laboratory evidence of HCV infection. In most cases, no further action is required. However, if recent HCV exposure is suspected, a test for HCV RNA (test code 66558) is suggested. For additional information please refer to http://[employer]/faq/GJB61g9 (This link is being provided for informational/ educational purposes only.) 10/25/2022 12:3 4 PM EDT 10/25/2022 12:35 PM EDT Narrative [facility] - 10/26/2022 7:31 PM EDT FASTING:YES FASTING: YES us Gladys Coleman MD LAB BLOOD ORDERABLES Fin al Result [facility] [address], [place] [address] [facility] [address] [place] [address] from Last 3 Months or Most Recently Relevant to Health Maintenance Insurance [facility] C3 HSN FULL Care Teams Sampler First Relationship Specialty Start Date End Date Gladys Coleman MD [address] [place] [phone] PCP - General Family Medicine 09/06/19
--- OUTSIDE RECORDS SUMMARY | 2024-10-25 11:03 | XMS_ITS | Encounter Summary ---
Author Organization [facility] Address [address] [facility] 7t [place] [address] Care Team Providers Care Loss Control Technician Name Role Phone Gladys Coleman MD Primary Care Provider + Encounter Details Date Type Department Care Team (Late st Contact Info) Description 09/22/2022 Telephone [facility] [address] [place] [address] [phone] Gladys Coleman MD [address] [place] [address] [phone] Social History Tobacco Use Types Packs/Day Years Used Date Smoking Tobacco: Never Assessed Comments Unknown Sex and Gender Information Value Date Recorded Sex Assigned at Female 05/16/2022 10:36 AM EDT Legal Sex Female 10:36 AM EDT Gender Identity Female 05/16/2022 10:36 AM EDT Sexual Orientation Straight 05/16/2022 10 :36 AM EDT documented as of this encounter Plan of Treatment Upcoming Encounters Date Type Department Care Team (Late st Contact Info) Description 01/14/2025 9:00 AM EDT Office Visit [facility] [address] [place] [phone] Gladys Coleman MD [address] [place] [address] [phone] documented as of this encounter Visit Diagnoses Not on filedocumented in this encounter Care Teams Loss Control Technician Relationship Specialty Start Date End Date Gladys Coleman MD [address] [place] [address] [phone] PCP - General Family Medicine 09/06/19 documented as of this encounter
--- OUTSIDE RECORDS SUMMARY | 2024-10-25 11:03 | XMS_ITS | Encounter Summary ---
Author Organization [employer] Address [address] [facility] 7t [place] [address] Care Team Providers Care Patrol Judge Name Role Phone Gladys Coleman MD Primary Care Provider + Reason for Visit * Reason Onset Date Comments Error 12/28/2023 Encounter Details Date Type Department Care Team ([facility] st Contact Info) Description 12/28/2023 Telephone [facility] [address] [place], [place] [phone] Gladys Coelman MD [address] [place], [place] [phone] Error Social History Tobacco Use Types Packs/Day Years [...] Patient Health Questionnaire-2 Score 2 10/25/2023 Comments Unknown Sex and Gender Information Value [...] Description 01/14/2025 9:00 AM EDT Office Visit [facility] [address] [place] [phone] Gladys Coleman MD [address] [place] [address] documented as of this encounter Visit Diagnoses Not on filedocumented in this encounter Additional Health Concerns Assessment Noted Time PHQ-9 Depression Total Score: 14 024 11:41 AM EDT documented as of this encounter Care Teams Patrol Judge Relationship Specialty Start Date End Date Gladys Coleman MD [address] [place] [phone] PCP - General Family Medicine 09/06/19 documented as of this encounter
--- OUTSIDE RECORDS SUMMARY | 2024-10-25 11:03 | XMS_ITS | Encounter Summary ---
Author Organization [employer] Address [address] [place] [address] Care Team Providers Care Awning Finisher Name Role Phone Gladys Coleman MD Primary Care Provider + Encounter Details Date Type Department Care Team (Latest Contact Info) Description 10/25/2024 Travel Social History Tobacco Use Types Packs/Day Years [...] Description 01/14/2025 9:00 AM EDT Office Visit [facility] [address] [place] [address] Gladys Coleman MD [address] [place], [place] [phone] documented as of this encounter Visit Diagnoses Not on filedocumented in this encounter Additional Health Concerns Assessment Noted Time PHQ-9 Depression Total Score: 14 024 11:41 AM EDT documented as of this encounter Care Teams Awning Finisher Relationship Specialty Start Date End Date Gladys Coleman MD [address] [place] [phone] PCP - General Family Medicine 09/06/19 documented as of this encounter
--- OUTSIDE RECORDS SUMMARY | 2024-10-25 11:03 | XMS_ITS | Clinical Summary ---
Author Organization [facility] Address [address] [place] [address] Phone Care Team Providers Care Fuel Agent Name Role Phone Gladys Coleman MD Primary Care Provider + [phone] Allergies Active Allergy Reactions Criticality Noted Date Comments Aspirin 08/13/2024 Encounters Date Type Department Care Team Description 08/13/2024 7:40 AM EST - 08/13/2024 10:05 AM EST Emergency [facility] Emergency [address] [place] [address] Ravindra Alvarez MD Nausea (Primary Dx); Other chest pain Discharge Disposition: Home or Self Care from Last 3 Months Medical History Medical History Date Comments Essential hypertension DX:Essent ial hypertension Depressive disorder DX:Depressiv e disorder Anxiety state DX:Anxiety state Social History Tobacco Use Types Packs/Day Years Used Date Smoking Tobacco: Never Smokeless Tobacco: Never Comments Unknown Sex and Gender Information Value Date Recorded Sex Assigned at Female 08/13/2024 8:11 AM EST Legal Sex Female 10:21 AM EST Gender Identity Female 08/13/2024 8:11 AM EST Sexual Orientation Not on file Obstetrics History Last Filed Vital Signs Vital Sign Reading Time Taken Comments Blood Pressure 133/69 08/13/2024 8:08 AM EST Pulse 60 08/13/2024 8:08 AM EST Temperature 37.1 ??C (98.8 ??F) 08/13/2024 8:08 AM ES T Respiratory Rate 18 08/13/2024 8:08 AM EST Oxygen Saturation 99% 08/13/2024 8:08 AM EST Inhaled Oxygen Concentration - - Weight 68 kg (150 lb) 08/12/2024 10:53 PM EST Height 152.4 cm (5') 08/12/2024 10:53 PM EST Body Mass Index 29.29 08/12/2024 10:53 PM EST Plan of Treatment Health Maintenance Due Date Last Done Comments Breast Cancer Screening 1975 Hepatitis B Vaccines (1 of 3 - 19+ 3-dose series) 10/24/1995 Cholesterol Screening (Lipid Panel) 06/14/2022 Colorectal Cancer Screening: Colonoscopy 06/14/2022 HIV Screening 06/14/2022 Hepatitis C Screening 06/14/2022 Social Influencers of Health Screening 06/14/2022 COVID-19 Vaccine ( - 2023-2 5 season) 2024 09/24/2021, 12/11/2020, 11/20/2020 Depression Screening 10/24/2024 10/25/2023 Influenza Vaccine (Season Ended) 2025 05/06/2021, 08/25/2020, 09/06/2019 Hypertension/CHF/CAD Annual BMP Blood Test 08/12/2025 08/12/2024 Cervical Cancer Screening: P ap Smear 12/07/2026 12/08/2023 DTaP,Tdap,and Td Vaccines (2 - Td or Tdap) 05/06/2031 05/06/2021 HIB Vaccines Aged Out No longer eligi [...] on patient's age to complete this topic MMR Vaccines Aged Out No longer eligi ble based on patient's age to complete this topic Meningococcal ACWY Vaccine Aged Out N o longer eligible based on patient's age to complete this topic Meningococcal B Vaccine Aged Out No l onger eligible based on patient's age to complete this topic Pneumococcal Vaccine: Pediatrics (0 to 5 Years) and At-Risk Patients (6 to 64 Years) Aged Out No longer eligible b ased on patient's age to complete this topic RSV Immunization Patients Under 20 months Aged Out No longer eligible b ased on patient's age to complete this topic Varicella Vaccines Aged Out No longer eligible based on patient's age to complete this topic Procedures Procedure Name Priority Date/Time Associated Diagnosis Comments TROPONIN I HIGH SENSITIVITY STAT 08/13/2024 12:32 AM EST ECG 12-LEAD STAT 08/13/2024 12:30 AM EST ECG ANNOTATED 08/13/2024 ECG ANNOTATED 08/13/2024 CBC WITH AUTO DIFFERENTIAL STAT 08/12/2024 11:14 PM EST B-TYPE NATRIURETIC PEPTIDE STAT 08/12/2024 11:14 PM EST MAGNESIUM STAT 08/12/2024 11:14 PM EST LIPASE STAT 08/12/2024 11:14 PM EST COMPREHENSIVE METABOLIC PANEL STAT 08/12/2024 11:14 PM EST CBC AND DIFFERENTIAL STAT 08/12/2024 11:14 PM EST TROPONIN I HIGH SENSITIVITY STAT 08/12/2024 11:14 PM EST ECG 12-LEAD STAT 08/12/2024 11:07 PM EST from Last 3 Months Results * Troponin I high sensitivity (08/13/2024 12:32 AM EST) Only the most recent of2 resultswithin the time period is included. High Sensitivity Troponin I 24 <=54 ng/L LAB CHEMISTRY METHOD 08/13/2024 1:27 AM EST [facility] Blood Venous blood specimen / Unknown Venipuncture / Unknown 08/13/2024 12:32 AM EST 08/13/2024 1:01 AM EST Narrative [facility] - 08/13/2024 1:27 AM EST High levels of biotin in samples may falsely decrease hsTroponin values. ??Use caution when interpreting hsTroponin results in patients taking biotin who exhibit renal impairment (eGFR <60) or in patients taking more than 20 mg/day of biotin. Ravindra Alvarez MD LAB BLOOD ORDERABLES Kati l Result Performing Organization Address [facility]/ZIP Co de Phone Number [facility] [address] [place] [address], [place] [phone] * ECG 12 lead (08/13/2024 12:30 AM EST) Only the most recent of2 resultswithin the time period is included. Ventricular Rate ECG 67 BPM GEMUSE Atrial Rate 67 BPM GEMUSE P-R Interval 112 ms GEMUSE QRS Duration 82 ms GEMUSE Q-T Interval 394 ms GEMUSE QTc 416 ms GEMUSE P Wave Fitzwilliam 12 degrees GEMUSE R Fitzwilliam -26 degrees GEMUSE T Fitzwilliam 12 degrees GEMUSE ECG Interpretation Normal sinus rhythm T wave abnormality, consider anterior ischemia Abnormal ECG When compared with ECG of 12-AUG-2024 23:07, No significant change was found Confirmed by MD Jason, [facility] ([id number]) on 08/14/2024 9:13:27 AM GEMUSE 08/13/2024 12:3 0 AM EST 08/14/2024 9:13 AM EST Ravindra Alvarez MD ECG ORDERABLES Final Res ult Performing Organization Address [facility] de Phone Number GEMUSE * ECG-Annotated (08/13/2024) Only the most recent of2 resultswithin the time period is included. Provider Onbase ECG ORDERABLES Final Result * (ABNORMAL) CBC auto differential (08/12/2024 11:14 PM EST) Pathologist [facility] WBC 9.7 4.8 - 10.8 K/[facility] HEMETOLOGY METHOD 08/12/2024 11:34 PM EST [facility] RBC 4.30 3.80 - 4.80 M/[facility] LAB HEMETOLOGY METHOD 08/12/2024 11:34 PM EST [facility] Hemoglobin 12.3 11.5 - 16.0 g/dL LAB HEMETOLOGY METHOD 08/12/2024 11:34 PM [facility] Hematocrit 38.0 35.0 - 47.0 % LAB HEMETOLOGY METHOD 08/12/2024 11:34 PM [facility] MCV 87.6 79.0 - 98.0 FL LAB HEMETOLOGY METHOD 08/12/2024 11:34 PM [facility] MCH 28.3 27.0 - 32.0 pcg LAB HEMETOLOGY METHOD 08/12/2024 11:34 PM [facility] MCHC 32.4 32.0 - 37.0 g/dL LAB HEMETOLOGY METHOD 08/12/2024 11:34 PM [facility] RDW 12.6 11.0 - 15.0 % LAB HEMETOLOGY METHOD 08/12/2024 11:34 PM [facility] Platelets 228 130 - 400 K/mcL LAB HEMETOLOGY METHOD 08/12/2024 11:34 PM [facility] MPV 11.6(H) 7.0 - 11.0 FL LAB HEMETOLOGY METHOD 08/12/2024 11:34 PM [facility] NRBC 0.0 <1.0 % LAB HEMETOLOGY METHOD 08/12/2024 11:34 PM [facility] NRBC Absolute 0.00 <0.10 K/mcL LAB HEMETOLOGY METHOD 08/12/2024 11:34 PM [facility] Neutrophils Relative 59.1 % LAB HEMETOLOGY METHOD 08/12/2024 11:34 PM [facility] Lymphocytes Relative 29.4 % LAB HEMETOLOGY METHOD 08/12/2024 11:34 PM [facility] Monocytes Relative 8.7 % LAB HEMETOLOGY METHOD 08/12/2024 11:34 PM [facility] Eosinophils Relative 2.3 % LAB HEMETOLOGY METHOD 08/12/2024 11:34 PM [facility] Basophils Relative 0.3 % LAB HEMETOLOGY METHOD 08/12/2024 11:34 PM [facility] Immature Granulocytes Relative 0.2 % LAB HEMETOLOGY METHOD 08/12/2024 11:34 PM [facility] Neutrophils Absolute 5.74 1.50 - 7.00 K/mcL LAB HEMETOLOGY METHOD 08/12/2024 11:34 PM [facility] Lymphocytes Absolute 2.86 1.00 - 5.00 K/mcL LAB HEMETOLOGY METHOD 08/12/2024 11:34 PM [facility] Monocytes Absolute 0.85 0.20 - 1.00 K/mcL LAB HEMETOLOGY METHOD 08/12/2024 11:34 PM [facility] Eosinophils Absolute 0.22 0.00 - 0.50 K/mcL LAB HEMETOLOGY METHOD 08/12/2024 11:34 PM [facility] Basophils Absolute 0.03 0.00 - 0.20 K/mcL LAB HEMETOLOGY METHOD 08/12/2024 11:34 PM [facility] Immature Granulocytes Absolute 0.02 0.00 - 0.03 K/mcL LAB HEMETOLOGY METHOD 08/12/2024 11:34 PM [facility] Blood Venous blood specimen / Unknown Venipuncture / Unknown 08/12/2024 11:14 PM EST 08/12/2024 11:26 PM EST us Ravindra Alvarez MD LAB BLOOD ORDERABLES Kati barraza Result [facility] [address] [place] [address], * B-type natriuretic peptide (08/12/2024 11:14 PM EST) BNP 49 <=100 pcg/mL LAB CHEMISTRY METHOD 08/13/2024 12:22 AM EST [facility] Blood Venous blood specimen / Unknown Venipuncture / Unknown 08/12/2024 11:14 PM EST 08/12/2024 11:26 PM EST us Ravindra Alvarez MD LAB BLOOD ORDERABLES Kati l Result [facility] [address] [place] [address], [place] [phone] * Magnesium (08/12/2024 11:14 PM EST) [facility] Magnesium 2.0 1.9 - 2.6 mg/dL LAB CHEMISTRY METHOD 08/12/2024 11:55 PM EST [facility] Blood Venous blood specimen / Unknown Venipuncture / Unknown 08/12/2024 11:14 PM EST 08/12/2024 11:26 PM EST us Ravindra Alvarez MD LAB BLOOD ORDERABLES Kati l Result [facility] [address] [place] [address], [place] [phone] * Lipase (08/12/2024 11:14 PM EST) [facility] Lipase 69 13 - 75 unit/L LAB CHEMISTRY METHOD 08/12/2024 11:55 PM EST [facility] Blood Venous blood specimen / Unknown Venipuncture / Unknown 08/12/2024 11:14 PM EST 08/12/2024 11:26 PM EST us Ravindra Alvarez MD LAB BLOOD ORDERABLES Kati l Result [facility] [address] [place] [address], [place] [phone] * (ABNORMAL) Comprehensive metabolic panel (08/12/2024 11:14 PM EST) Sodium 136 133 - 145 mmol/L LAB CHEMISTRY METHOD 08/13/2024 12:00 AM [facility] Potassium 3.7 3.5 - 5.5 mmol/L LAB CHEMISTRY METHOD 08/13/2024 12:00 AM [facility] Chloride 105 96 - 110 mmol/L LAB CHEMISTRY METHOD 08/13/2024 12:00 AM [facility] CO2 29 21 - 32 mmol/L LAB CHEMISTRY METHOD 08/13/2024 12:00 AM [facility] Anion Gap 2(L) 3 - 11 LAB CHEMISTRY METHOD 08/13/2024 12:00 AM [facility] Glucose 101(H) 70 - 100 mg/dL LAB CHEMISTRY METHOD 08/13/2024 12:00 AM [facility] BUN 13 5 - 25 mg/dL LAB CHEMISTRY METHOD 08/13/2024 12:00 AM [facility] Creatinine 1.07 0.50 - 1.10 mg/dL LAB CHEMISTRY METHOD 08/13/2024 12:00 AM [facility] eGFR 65 >=60 mL/min/1. 73m2 LAB CHEMISTRY METHOD 08/13/2024 12:00 AM [facility] Comment:Calculation based on the??Chronic Kidney Disease Epidemiology Collaboration (CKD-EPI) equation refit??without adjustment for race. BUN/Creatinine Ratio 12.1 LAB CHEMISTRY METHOD 08/13/2024 12:00 AM [facility] Calcium 9.7 8.5 - 10.5 mg/dL LAB CHEMISTRY METHOD 08/13/2024 12:00 AM [facility] AST (SGOT) 17 10 - 42 unit/L LAB CHEMISTRY METHOD 08/13/2024 12:00 AM [facility] ALT (SGPT) 20 10 - 60 unit/L LAB CHEMISTRY METHOD 08/13/2024 12:00 AM [facility] Alkaline Phosphatase 62 42 - 121 unit/L LAB CHEMISTRY METHOD 08/13/2024 12:00 AM [facility] Total Protein 7.4 6.0 - 8.0 g/dL LAB CHEMISTRY METHOD 08/13/2024 12:00 AM [facility] Albumin 4.1 3.2 - 5.0 g/dL LAB CHEMISTRY METHOD 08/13/2024 12:00 AM [facility] Total Bilirubin 0.2 0.0 - 1.4 mg/dL LAB CHEMISTRY METHOD 08/13/2024 12:00 AM [facility] Blood Venous blood specimen / Unknown Venipuncture / Unknown 08/12/2024 11:14 PM EST 08/12/2024 11:26 PM EST us Ravindra Alvarez MD LAB BLOOD ORDERABLES Kati barraza Result [facility] [address] [place] [address], from Last 3 Months Insurance MEDICAID - [place] Care Teams Fuel Agent Relationship Specialty Start Date End Date Virginia, Nancy, MD [address] [place] [address] [phone] PCP - General 06/12/23
[2024-10-25 12:01] LABS: Estimated Average Glucose 105 mg/dL; Hemoglobin A1C 119.2024 umol/L; Hemoglobin A1c % 5.3 % (<6.0); Total Hemoglobin (HGBA1C) 3434.7381 umol/L
[2024-10-25 12:04] LABS: Cholesterol 168 mg/dL (<200); Glucose Fasting 90 mg/dL (60-99); HDL Cholesterol 50 mg/dL (>40); LDL Cholesterol Calculated 104 mg/dL (<100); Triglycerides 72 mg/dL (<150)
[2024-10-25 12:19] LABS: Syphilis Screen Nonreactive (Nonreactive)
[2024-10-25 12:26] LABS: TSH reflex Free T4 2.79 uIU/mL (0.32-4.0); Vitamin D 25-OH Total 21.9 ng/mL (>30)
[2024-10-25 12:30] LABS: Folate 13.9 ng/mL (> or = 4.0); Vitamin B12 450 pg/mL (200-900)
[2024-10-25 12:35] LABS: Reflex LDLD? No
[2024-10-28 17:18] LABS: Lyme Abs Screen <0.90 index
== END 2024-10-25 10:15 | disposition home or self-care (01) ==
LOC: HO.HHCL 10:14
PROVIDERS: Visit Provider Internal Medicine
DX: R20.0 Anesthesia of skin (principal); R20.2 Paresthesia of skin; E55.9 Vitamin D deficiency, unspecified; I10 Essential (primary) hypertension
CPT/HCPCS: 36415; 80061; 82306; 82607; 82746; 82947; 83036; 84443; 86617; 86618; 86780

== ENCOUNTER 2024-12-20 09:48 | Outpatient (REF) | payer MEDICAID, SELFPAY ==
--- NOTE | ~2024-12-20 | US_ITS ---
EXAMINATION: US RETROPERITONEUM HISTORY: N30.10 - Interstitial cystitis (chronic) without hematuria TECHNIQUE: Real-time grayscale ultrasound imaging of the kidneys was performed and images were reviewed. COMPARISON: Comparison is made with the prior examination dated 09/05/2022. FINDINGS: Right kidney: The right kidney measures 10.0 x 4.3 x 4.9 cm. Renal parenchymal echotexture and thickness are normal. There are no masses. There is no hydronephrosis or renal calculi. Left Kidney: The left kidney measures 10.4 x 4.7 x 4.1 cm. Renal parenchymal echotexture and thickness are normal. There are no masses. There is no hydronephrosis or renal calculi. The urinary bladder is unremarkable. Bilateral ureteral jets are identified. Before voiding, the urinary bladder measured 9.2 x 5.0 x 8.0 cm, for an estimated volume of 193 mL. After voiding, the urinary bladder measured 3.6 x 2.1 x 5.2 cm, for an estimated volume of 21 mL. US/US retroperitoneal comp IMPRESSION: Unremarkable retroperitoneal ultrasound. Post void bladder residual of 21 mL. Electronically signed by: Robb Gomez MD 12/20/2024 10:48 AM EDT
--- OUTSIDE RECORDS SUMMARY | 2024-12-20 10:27 | XMS_ITS | Encounter Summary ---
Author Organization [employer] Address [address] [facility] 7t [place] [address] Care Team Providers Care Shotblast Equipment Operator Name Role Phone Gladys Coleman MD Primary Care Provider + Reason for Visit * Reason Onset Date Comments ER Follow-up 11/18/2024 Encounter Details Date Type Department Care Team ([facility] st Contact Info) Description 11/18/2024 Telephone [facility] MEDICINE [address], [place] [phone] Gladys Coleman MD [address] [place] [address] ER Follow-up Social History Tobacco Use Types Packs/Day Years [...] encounter Miscellaneous Notes * Telephone Encounter - Lindsey Ross RN - 12/18/2024 11:46 AM EDT [facility] records reviewed, pt. In ED 11/17/24 for fall s/p possible seizure c/o R hip pain. X-ray andCT scan WNL. Dx. Possible sciatica and given rx for gabapentin 100mg tid x 7 days, advised to f/up with neurology and PCP TC placed to pt., phone rang once then went straight to VM x 2 attempts. Left message requesting call back to Red Team RN upon receipt of message. Pt. To f/up prn * Telephone Encounter - Roberto Bender - 12/18/2024 11:20 AM EDT Tc from pt calling in regards to message prior she did not receive a call back. Advised pt about prior documentation and advised to be aware of call back. * Telephone Encounter - Yolanda Arenas RN - 11/19/2024 12:08 PM EDT Tc x 4 placed to patient [phone] regarding below message. RN left VM for patient to Red team nurses. Pt to F/U PRN * Telephone Encounter - Li Hughes - 11/19/2024 11:20 AM EDT Tc from pt returning call. Contact pt at [phone] (haitian) * Telephone Encounter - Yolanda Arenas RN - 11/19/2024 9:20 AM EDT TC x3 placed to patient [phone] regarding below message. RN left VM for patient to CB Red teamnurses. RN to send a letter. * Telephone Encounter - Yolanda Arenas RN - 11/18/2024 3:19 PM EDT TC x2 placed to patient [phone] regarding below message. RN left VM for patient to CB Red teamnurses. RN will re-attempt in the am. TC placed to patient daughter (Irais) [phone] regarding below message. RN left VM for patientto CB Red team nurses. * Telephone Encounter - Yolanda Arenas RN - 11/18/2024 11:41 AM EDT TC placed to patient [phone] regarding below message. RN left VM for patient to CB Red team nurses. RN will f/u in PM. * Telephone Encounter - Li Hughes - 11/18/2024 11:13 AM EDT Patient calling to report ED visit on : Date: 11/17/24 Hospital: [facility] Seen for: fall due to seizure Symptomatic No Contact pt at [phone] (haitian) documented in this encounter Plan of Treatment Upcoming Encounters Date Type Department Care Team (Late st Contact Info) Description 01/14/2025 9:00 AM EDT Office Visit [facility] [address] [place] [address] Gladys Coleman MD [address] [place], [place] [phone] documented as of this encounter Visit Diagnoses Not on filedocumented in this encounter Additional Health Concerns Assessment Noted Time PHQ-9 Depression Total Score: 14 024 11:41 AM EDT documented as of this encounter Care Teams Shotblast Equipment Operator Relationship Specialty Start Date End Date Gladys Coleman MD [address] [place] [phone] PCP - General Family Medicine 09/06/19 documented as of this encounter
== END 2024-12-20 09:49 | disposition home or self-care (01) ==
LOC: HO.US 09:48
PROVIDERS: PCP Internal Medicine; Visit Provider Nurse Practitioner Family
DX: N30.10 Interstitial cystitis (chronic) without hematuria (principal); R31.29 Other microscopic hematuria
CPT/HCPCS: 76770

== ENCOUNTER → 2024-12-20 09:49 | Outpatient (BNV) | payer MEDICAID, SELFPAY | PROVIDERS: PCP Internal Medicine; Visit Provider Radiology Diagnostic Radiology | DX: N30.10 Interstitial cystitis (chronic) without hematuria (principal) | CPT/HCPCS: 76770 ==

== ENCOUNTER 2025-01-08 10:16 | Outpatient (AMB) | payer MEDICAID, SELFPAY ==
--- NOTE | 2025-01-08 10:18 | A.OFFVIS_ITS ---
Intake Visit Reasons: 3m/US(set) Intake Note: Patient is present for follow up interstitial cystitis and microscopic hematuria Urology Medications: oxybutynin Blood Thinner: none PVR: 45ml's Music Teacher Required: Yes Music Teacher Services: Music Teacher Present Music Teacher Name: Judy Sosa174 Accompanied by: Self / Same As Patient Allergies Sulfa (Sulfonamide Antibiotics) Allergy (Severe, Verified 01/08/25 11:05) tremors, unsteadiness baclofen Allergy (Intermediate, Verified 01/08/25 11:05) cramping aspirin Adverse Reaction (Severe, Verified 01/08/25 11:05) Rash levetiracetam Adverse Reaction (Severe, Verified 01/08/25 11:05) Unknown naproxen Adverse Reaction (Severe, Verified 01/08/25 11:05) Rash oxcarbazepine Adverse Reaction (Severe, Verified 01/08/25 11:05) Facial Swelling pentosan polysulfate sodium (From [place]) Adverse Reaction (Mild, Verified 01/08/25 11:05) Vomiting trazodone Adverse Reaction (Unknown, Verified 01/08/25 11:05) Unknown henazopynide Allergy (Severe, Uncoded 01/08/25 11:05) Unknown Medication List - Last Reconciled 01/08/25 by ARLEEN Shepherd bisacodyl (Dulcolax (bisacodyl)) 10 mg (2 x 5 mg) PO BEDTIME calcium carbonate (Antacid Extra-Strength) 1 tab PO TID famotidine (Pepcid) 20 mg PO BID 90 days gabapentin 300 mg PO BEDTIME 30 days hydrochlorothiazide 12.5 mg PO DAILY imipramine HCl 25 mg PO BEDTIME 30 days lamotrigine 100 mg PO BID lisinopril 5 mg PO DAILY melatonin 1-3 tabs orally bedtime PRN; 30 days metronidazole 0.75% topical oxybutynin chloride ER 10 mg PO DAILY 30 days polyethylene glycol 3350 (Miralax) 17 grams PO DAILY sodium chloride 0.65% (Deep Sea Nasal) 1 - 2 sprays intranasal Q2-3H PRN HPI Comments Details: Briana is a 48-year-old Honduran-speaking female patient of Dr. Coleman who was accompanied by her daughter and grandson at today's office visit. She has a past medical history of diverticulitis as well as interstitial cystitis. She presents to the office today for follow-up. Recent retroperitoneal ultrasound results reviewed with the patient today 01/08 bilateral kidneys are normal in thickness and echotexture. There is no renal masses, hydronephrosis, and or renal calculi noted bilaterally. The urinary bladder is unremarkable. Unremarkable retroperitoneal ultrasound. She reports utilizing oxybutynin as needed with episodes of urinary urgency, urinary frequency, and bladder pressure. She reports noting lower urinary tract symptoms worsen with her menses. We did discussed correlation of menses with these symptoms. In office urinalysis results reviewed with the patient today. 2+ microscopic hematuria pH 6.0. We did discussed at length the importance of adequate hydration relation to lower urinary tract symptoms as well as overall health and well-being. We did discussed bladder triggers and irritants. She otherwise denies incontinence, nocturia, hematuria, dysuria, foul smelling urine, changes to urinary stream, flank pain, fever, and or chills. We discussed further interventions to include in office cystoscopy or trial of other modalities. All questions were answered. She otherwise offers no other issues or concerns at this time. In review of patient's chart it appears urine cytology 08/08 & 10/08 Negative for high-grade urothelial carcinoma. PFSH Medical History Diverticulosis delivery delivered Interstitial cystitis History of UTI Interstitial cystitis Surgical History Hx of colonoscopy Hx of tubal ligation History of Family History Mother Diabetes Father Stroke Social History Household Members: Family Alcohol intake: never Patient Tobacco Use Status: Never used Tobacco service: No Current occupational exposures/hazards: No Review of Systems Const Reports no additional complaints Eyes Reports no additional complaints ENT Details: patient reports having seasonal allergies Reports no additional complaints Card Reports no additional complaints Resp Reports no additional complaints GI Reports no additional complaints Reports as per HPI Musc Details: Patient reports having recent x-ray imaging with PCP and being diagnosed with arthritis of the left hip Reports no additional complaints Neuro Reports no additional complaints Psych Reports no additional complaints Endo Reports no additional complaints Quan/Lymph Reports no additional complaints Aller/Immun Reports no additional complaints Physical Exam Const General: cooperative, healthy appearing, comfortable, no acute distress, well developed, alert and awake Nutritional Appearance: overweight Orientation/consciousness: patient oriented x3 Limitations: no limitations HEENT Head: Yes normal to inspection, Yes normocephalic and Yes atraumatic Ears: hearing grossly normal bilaterally Neck Neck: Yes normal visual inspection and Yes trachea midline Chest Chest palpation & inspection: normal inspection of the chest Resp Effort & Inspection: normal respiratory effort and able to speak in complete sentences Cardio Rate: regular rate General: Yes no CVA tenderness Back/Spine/Pelvis Back: no CVA tenderness Cervical Spine: normal cervical lordosis Neuro General: patient oriented x3 Extrem General: Yes normal to inspection Psych Appearance: grossly normal and well kempt Mental Status: mental status grossly normal Speech and movement: Normal speech and movement present and Clear speech present Affect: normal affect Attitude: cooperative Thought process: Normal thought process present Thought content: Normal thought content present Insight: Fair insight present (Psych) Judgement: Fair judgement present (Psych) Office Procedures Post Void Residual Post Residual Void Post Void Residual (PVR): 45 [id number] Void Residual by ultrasound Results AMB Urinalysis, Automated UA Leukoctes 0 [place]/uL Last Edit by Jazmyn Chinchilla [facility] on 01/08/25 10:34 UA Nitrite Last Edit by Jazmyn Chinchilla [facility] on 01/08/25 10:34 UA Urobilinogen 0.2 mg/dL Last Edit by Jazmyn Chinchilla [facility] on 01/08/25 10:3 4 UA Protein 15 mg/dL Last Edit by Jazmyn Chinchilla [facility] on 01/08/25 10:34 UA pH 6.0 Last Edit by Jazmyn Chinchilla [facility] on 01/08/25 10:34 UA Blood 80 Per/uL Last Edit by BUD Conley on 01/08/25 10:34 UA Specific [place] 1.020 Last Edit by Jazmyn ChelnickRUDDY on 01/08/25 10: 34 UA Ketone Last Edit by Willieandrew MilligannickBUD on 01/08/25 10:34 UA Bilirubin 1 mg/dL Last Edit by Jaz[facility] Chelnick [facility] on 01/08/25 10:34 UA Glucose 0 mg/dL Last Edit by Shortyjimandrew Milligannick [facility] on 01/08/25 10:34 Results Reviewed Results Reviewed: Laboratory Last Values Urine pH (Auto) 6.0 01/08/25 10:32 Specific [place] (Auto) 1.020 01/08/25 10:32 Urine Protein (Auto) 15 mg/dL 01/08/25 10:32 Glucose (UA)(Auto) 0 mg/dL 01/08/25 10:32 Urine Blood (Auto) 80 Per/uL 01/08/25 10:32 Urine Bilirubin (Auto) 1 mg/dL 01/08/25 10:32 Urine Urobilinogen (Auto) 0.2 mg/dL 01/08/25 10:32 Leukocyte Esterase (Auto) 0 [place]/uL 01/08/25 10:32 Date of Service: 12/20/24 Procedure(s): US retroperitoneal comp FINDINGS: Right kidney: The right kidney measures 10.0 x 4.3 x 4.9 cm. Renal parenchymal echotexture and thickness are normal. There are no masses. There is no hydronephrosis or renal calculi. Left Kidney: The left kidney measures 10.4 x 4.7 x 4.1 cm. Renal parenchymal echotexture and thickness are normal. There are no masses. There is no hydronephrosis or renal calculi. The urinary bladder is unremarkable. Bilateral ureteral jets are identified. Before voiding, the urinary bladder measured 9.2 x 5.0 x 8.0 cm, for an estimated volume of 193 mL. After voiding, the urinary bladder measured 3.6 x 2.1 x 5.2 cm, for an estimated volume of 21 mL. IMPRESSION: Unremarkable retroperitoneal ultrasound. Post void bladder residual of 21 mL. Assessment & Plan Assessment & Plan (1) Microscopic hematuria: Code(s): R31.29 - Other microscopic hematuria Category: Medical (2) Interstitial cystitis: Code(s): N30.10 - Interstitial cystitis (chronic) without hematuria Category: Medical Plan In office urinalysis results reviewed with the patient today; as noted above; will send for urine cytology. Recent retroperitoneal ultrasound results reviewed with the patient today; as noted above. We did discussed potential causes of lower urinary tract symptoms patient is experiencing as well as further treatment options and risks and benefits of these treatment options. Continue with oxybutynin. We discussed bladder triggers and irritants We discussed the importance of adequate hydration Follow-up next available in office cystoscopy; or sooner with any issues, concerns, and or questions. Orders: Orders AMB Post Void Residual by ultrasound Today N30.10 - Interstitial cystitis (chronic) without hematuria Urine Cytology Today R31.29 - Other microscopic hematuria AMB Urinalysis Automated Today Z13.9 - Encounter for screening, unspecified Patient Instructions: The patient had an opportunity to ask questions regarding the treatment plan. All questions were answered. Physical exam, labs, and imaging were discussed and reviewed in detail. As well as risks, benefits, and discussion of treatment choices. No major barriers to understanding were identified. The patient expressed understanding and agreement with the above treatment plan. The patient was made aware they should contact our office by phone for worsening of their current condition, the appearance of new symptoms, or with any questions or concerns. Compliance is encouraged with any medications and follow up testing that is ordered. It is a privilege to be allowed the opportunity to participate in? your urological care.? Again, if you have any questions or concerns If you have any questions or concerns please do not hesitate to contact me. The office is [phone]. This note is constructed using voice recognition software. While every effort has been made to ensure accuracy roofer metal errors may have been included. Yours sincerely, ARLEEN Shepherd Coding Level of Care Code Est Pt Level 3 (05058) Complex EM visit Add On G2211 Diagnoses Microscopic hematuria R31.29 Interstitial cystitis N30.10 CPT Codes Post Residual Void - PVR CPT Code: 17436-Hxqr Void Residual by ultrasound ([id number])
--- OUTSIDE RECORDS SUMMARY | 2025-01-08 11:56 | XMS_ITS | Encounter Summary ---
Author Organization [employer] Address [address] [facility] 7[address] [place] [address] Care Team Providers Care Psychiatric Clinician Name Role Phone Gladys Coleman MD Primary Care Provider + Encounter Details Date Type Department Care Team ([facility] st Contact Info) Description 11/16/2024 Orders Only [facility] MED [facility] PEDS [address] [place] [address] ProviderSeth MD Social History Tobacco Use Types Packs/Day Years [...] is your housing situation today? I have bretaddy crawford 10/25/[address] you [...] the past 12 months, has t he [employer], gas, oil or water company threatened to [...] Description 01/14/2025 9:00 AM EDT Office Visit [facility] MEDICINE [address], [place] [phone] Gladys Coleman MD [address] [place], [place] [phone] documented as of this encounter Procedures Procedure Name Priority Date/Time Associated Diagnosis Comments HM COLONOSCOPY Routine 07/08/2022 4:53 PM EST documented in this encounter Results * Hm Colonoscopy (07/08/2022 4:53 PM EST) Colonoscopy Normal Normal Narrative Rosalee Cohen - 07/08/2022 4:53 PM EST Recommended 10 year follow up ( notes scanned in federal mediation commissioner ) us Historical Provider HEALTH MAINTENANCE Edited Result - Final documented in this encounter Visit Diagnoses Not on filedocumented in this encounter Additional Health Concerns Assessment Noted Time PHQ-9 Depression Total Score: 14 024 11:41 AM EDT documented as of this encounter Care Teams Psychiatric Clinician Relationship Specialty Start Date End Date Gladys Coleman MD [address], [place] [phone] PCP - General Family Medicine 09/06/19 documented as of this encounter
== END 2025-01-08 11:03 | disposition home or self-care (01) ==
LOC: HO.HUSH 10:17
PROVIDERS: PCP Internal Medicine; Visit Provider Nurse Practitioner Family
DX: R31.29 Other microscopic hematuria (principal); N30.10 Interstitial cystitis (chronic) without hematuria; Z13.9 Encounter for screening, unspecified
CPT/HCPCS: 99213

== ENCOUNTER 2025-01-08 10:16 | Outpatient (REF) | payer MEDICAID, SELFPAY ==
[2025-01-08 16:31] LABS: Urine Cytology See Pathology rpt
== END 2025-01-08 10:17 | disposition home or self-care (01) ==
LOC: HO.LNP 10:16
PROVIDERS: PCP Internal Medicine; Visit Provider Nurse Practitioner Family
DX: R31.29 Other microscopic hematuria (principal); N30.10 Interstitial cystitis (chronic) without hematuria
CPT/HCPCS: 51798; 81003; 88112; 99212

== ENCOUNTER 2025-03-07 09:46 | Outpatient (AMB) | payer MEDICAID, SELFPAY ==
--- OUTSIDE RECORDS SUMMARY | 2025-02-27 11:00 | XMS_ITS | Continuity of Care Document ---
Author Organization [facility] Address [address] [place] [address] [address] [place] [address] Phone Care Team Providers Care Vp & General Counsel Name Role Phone Lb GURROLA, JOANN, RANDALL, Robb Unavailable U navailable Procedures Procedure Date Offic/outpt E&m Estab 5 Min Trial- Telem edicine CT & [place] Office/Oupt E&M New Pt 30 Mins- CT & [place] Duplex Scan-extrem Veins; Comp- [place] & [place] Advance Directives Directive Yes / No Effective Date File Name No Information Encounters Encounter Description Practice Location Reason(s) For Visit Diagnoses Date Provider Providers Copied on Encounter Offic/outpt E&m Estab 5 Min Trial- Telemedicine [place] & [place] [facility], [address] [place] [address] Dr [address], [place], [id number], [place] tel:[phone] [facility] [place] Varicose veins of bilateral lower extremities with other complications Essential (primary) hypertensionL ymphedema, not elsewhere classifiedHer editary lymphedema 5 Lb GURROLA, RANDALL DAVID. [address] [facility] [address], [place], [place], [id number] , [place]. tel:[phone] Referring Provider: Gladys Coleman MD, [address] [facility] [address], [place], [address]. tel:[phone] Office/Oupt E&M New Pt 30 Mins- [place] & [place] [facility], [address] [place] [address] Dr [address], [place], [id number], tel:[phone] [facility] Varicose veins of bilateral lower extremities with other complications Pain in right lower legPain in left lower legPain in right legRestless legs syndromeEssen tial (primary) hypertensionL ymphedema, not elsewhere classifiedPai n in left legHereditary lymphedemaCra mp and spasmLocalize d edema 5 Lb GURROLA, JOANN, RANDALL Zamudio. [address] [place] [address], [place], [place], [id number] , [place]. tel:[phone] Referring Provider: Gladys Coleman MD, [address] [place] [address], [place], [address]. tel:[phone] [facility], [address] [place] [address] [address], [place], [id number], tel:[phone] [facility] Chronic venous hypertension (idiopathic) with other complications of bilateral lower extremity 5 Lb GURROLA RVT, RANDALL Zamudio. [address] [place] [address], [place], [place], [id number] , [place]. tel:[phone] Referring Provider: Gladys Coleman MD, [address] [place] [address], [place], [address]. tel:[phone] Family History Family Member Type Diagnosis Age At Onset No Information Payers Payer name Insurance type Covered green party ID Authorjordan sommer(s) Medical Assistance [employer] [id number] Social History Type Description Quantity Date Captured Comments Alcohol Use Details Unknown Caffeine Use Details Unknown Tobacco Use Status Current non-smoker Smoking Status Never Smoker Non-Smoking Tobacco Use Details : No Details Available : No Details Available Sex Female Vital Signs Date / Time: Height Weight BMI Pulse Rate Blood Pressure Temperature Respiratory Rate Body Surface Area Head Circumference Head Circ. Percentile Wt./Pravin. Percentile BMI percentile Pulse Ox Inhaled Ox 63.500 kg (140.00 lbs) 29.4 2 kg/m eter (2) 118/82 mm[Hg] Chief Complaint And Reason For Visit No Information Reason For Referral Reason For Referral No Information Plan Of Treatment Date Type Action Status Goal Diet education completed Referral Ordered: Weight management: Referral to physician timeframe: 3 Months (related to Body mass index (BMI) 29.0-29.9, adult) ordered Appointment Radha Milliganrivee BOOKED Appointment Milligan, Glor[place] BOOKED Appointment Milligan, [place] BOOKED Appointment Milligan, [place] BOOKED Appointment Radha Milliganrivee BOOKED Appointment Chel Glorivee BOOKED History Of Present Illness Encounter Date Complaint History Of Prese nt Illness No Information Functional Status Date Functional Assessmen t No Information Instructions Date Instruction Additional Infor nano Patient education booklet given Related to Varicose veins of bilateral lower extremities with other complications Compression stocking usage as conservative measure Related to Varicose veins of bilateral lower extremities with other complications Diet education Related to Body mass index (BMI) 29.0-29.9, adult Giving Encouragement to exercise Related to Body mass index (BMI) 29.0-29.9, adult Pre and post instruc tions reviewed and provided Related to Varicose veins of bilateral lower extremities with other complications Lifestyle education Related to B ellen mass index (BMI) 29.0-29.9, adult Patient education booklet given Related to Varicose veins of bilateral lower extremities with other complications Assessments Type Assessment Date assessment Essential (primary) hypertension assessment Varicose veins of bi lateral lower extremities with other complications assessment Lymphedema, not elsewhere classi fied assessment Hereditary lymphedema Patient Care Teams Name Effective Dates (start - stop) Status Members No Information
--- OUTSIDE RECORDS SUMMARY | 2025-03-07 09:49 | XMS_ITS | Clinical Summary ---
Author Organization [facility] Address [address] [place] [address] Phone Care Team Providers Care Campus Recruiting Intern Name Role Phone Gladys Coleman MD Primary Care Provider + [phone] Allergies Active Allergy Reactions Criticality Noted Date Comments Aspirin 08/13/2024 Medical History Medical History Date Comments Essential [...] 60 08/13/2024 8:08 AM EST Temperature 37.1 C (98.8 F) 08/13/2024 8:08 AM EST Respiratory Rate 18 08/13/2024 8:08 AM EST [...] Influencers of Health Screening 06/14/2022 COVID-19 Vaccine (4 - 2023-2 5 season) 2024 09/24/2021, 12/11/2020, 11/20/2020 Depression Screening 07/17/2024 Influenza Vaccine (#1) 2025 , 08/25/2020, 09/06/2019 Hypertension/CHF/CAD Annual BMP Blood Test [...] 5 Years) and At-Risk Patients (6 to 49 Years) Aged Out No longer eligible b ased on patient's age to complete this topic RSV Immunization Patients Under 20 months Aged Out No longer eligible b ased on patient's age to complete this topic Varicella Vaccines Aged Out No longer eligible based on patient's age to complete this topic Procedures Procedure Name Priority Date/Time Associated Diagnosis Comments COMPREHENSIVE METABOLIC PANEL STAT 08/12/2024 11:14 PM EST from Last 3 Months or Most Recently Relevant to Health Maintenance Results * (ABNORMAL) Comprehensive metabolic panel (08/12/2024 11:14 PM EST) Sodium 136 133 - 145 mmol/L LAB CHEMISTRY METHOD 08/13/2024 12:00 AM [facility] Potassium 3.7 3.5 - 5.5 mmol/L LAB CHEMISTRY METHOD 08/13/2024 12:00 AM [facility] Chloride 105 96 - 110 mmol/L LAB CHEMISTRY METHOD 08/13/2024 12:00 AM [facility] CO2 29 21 - 32 mmol/L LAB CHEMISTRY METHOD 08/13/2024 12:00 AM [facility] Anion Gap 2(L) 3 - 11 LAB CHEMISTRY METHOD 08/13/2024 12:00 AM [facility] Glucose 101(H) 70 - 100 mg/dL LAB CHEMISTRY METHOD 08/13/2024 12:00 AM [facility] BUN 13 5 - 25 mg/dL LAB CHEMISTRY METHOD 08/13/2024 12:00 AM [facility] Creatinine 1.07 0.50 - 1.10 mg/dL LAB CHEMISTRY METHOD 08/13/2024 12:00 AM [facility] eGFR 65 >=60 mL/min/1. 73m2 LAB CHEMISTRY METHOD 08/13/2024 12:00 AM [facility] Comment:Calculation based on the Chronic Kidney Disease Epidemiology Collaboration (CKD-EPI) equation refit without adjustment for race. BUN/Creatinine Ratio 12.1 LAB CHEMISTRY METHOD 08/13/2024 12:00 AM [facility] Calcium 9.7 8.5 - 10.5 mg/dL LAB CHEMISTRY METHOD 08/13/2024 12:00 AM [facility] AST (SGOT) 17 10 - 42 unit/L LAB CHEMISTRY METHOD 08/13/2024 12:00 AM [facility] ALT (SGPT) 20 10 - 60 unit/L LAB CHEMISTRY METHOD 08/13/2024 12:00 AM [facility] Alkaline Phosphatase 62 42 - 121 unit/L LAB CHEMISTRY METHOD 08/13/2024 12:00 AM EST [facility] Total Protein 7.4 6.0 - 8.0 g/dL LAB CHEMISTRY METHOD 08/13/2024 12:00 AM EST [facility] Albumin 4.1 3.2 - 5.0 g/dL LAB CHEMISTRY METHOD 08/13/2024 12:00 AM [facility] Total Bilirubin 0.2 0.0 - 1.4 mg/dL LAB CHEMISTRY METHOD 08/13/2024 12:00 AM EST [facility] Blood Venous blood specimen / Unknown Venipuncture / Unknown 08/12/2024 11:14 PM EST 08/12/2024 11:26 PM EST Ravindra Alvarez MD LAB BLOOD ORDERABLES Kati l Result [facility] [address] [place] [address], from Last 3 Months or Most Recently Relevant to Health Maintenance Insurance MEDICAID - [place] Care Teams Campus Recruiting Intern Relationship Specialty Start Date End Date Gladys Coleman MD [address] [place] [phone] PCP - General 06/12/23
--- OUTSIDE RECORDS SUMMARY | 2025-03-07 09:49 | XMS_ITS | Encounter Summary ---
Author Organization [employer] Address [address] [place] [address] Care Team Providers Care Hospitalist Nocturnist Physician Name Role Phone Gladys Coleman MD Primary Care Provider + Encounter Details Date Type Department Care Team ([facility] st Contact Info) Description 11/16/2024 Orders Only [facility] [address] [place] [address] ProviderSeth MD Social History Tobacco Use Types [...] the past 12 months, has t he [employer], gas, oil or water company threatened to [...] as of this encounter Plan of Treatment Not on file documented as of this encounter Procedures Procedure Name Priority Date/Time Associated Diagnosis Comments COLONOSCOPY Routine 07/08/2022 4:53 PM EST documented in this encounter Results * Hm Colonoscopy (07/08/2022 4:53 PM EST) Colonoscopy Normal Normal Narrative Rosalee Cohen - 07/08/2022 4:53 PM EST Recommended 10 year follow up ( notes scanned in social media strategist ) us Historical Provider HEALTH MAINTENANCE Edited Result - Final documented in this encounter Visit Diagnoses Not on filedocumented in this encounter Additional Health Concerns Assessment Noted Time PHQ-9 Depression Total Score: 14 024 11:41 AM EDT documented as of this encounter Care Teams Hospitalist Nocturnist Physician Relationship Specialty Start Date End Date Gladys Coleman MD [address] [place] [id number] PCP - General Family Medicine 09/06/19 documented as of this encounter
--- NOTE | 2025-03-07 10:04 | A.OFFVIS_ITS ---
Intake Visit Reasons: cysto Intake Note: Patient is present for:cystoscopy Urology Medications: oxybutynin Blood Thinner: none 8 [employer] Required: Yes Accompanied by: Self / Same As Patient Allergies Sulfa (Sulfonamide Antibiotics) Allergy (Severe, Verified 03/07/25 10:05) tremors, unsteadiness baclofen Allergy (Intermediate, Verified 03/07/25 10:05) cramping aspirin Adverse Reaction (Severe, Verified 03/07/25 10:05) Rash levetiracetam Adverse Reaction (Severe, Verified 03/07/25 10:05) Unknown naproxen Adverse Reaction (Severe, Verified 03/07/25 10:05) Rash oxcarbazepine Adverse Reaction (Severe, Verified 03/07/25 10:05) Facial Swelling pentosan polysulfate sodium (From [place]) Adverse Reaction (Mild, Verified 03/07/25 10:05) Vomiting trazodone Adverse Reaction (Unknown, Verified 03/07/25 10:05) Unknown henazopynide Allergy (Severe, Uncoded 03/07/25 10:05) Unknown HPI Comments Details: Briana is a pleasant Romansh-speaking female. She is a patient of Dr. Coleman. She is seen for the following urologic conditions - interstitial cystitis - microscopic hematuria Here for cystoscopy in setting of persistent microscopic hematuria Bladder with mild mucosal irritation consistent with current diagnosis Trabeculation 1+ Interstitial cystitis Cyclical lower urinary tract symptoms Baseline oxybutynin as needed for urinary urgency and frequency Persistent microhematuria Prior discussions have emphasized importance of hydration, bladder and dietary triggers. Prior cytology negative Prior renal imaging negative PFSH Medical History Diverticulosis delivery delivered Interstitial cystitis History of UTI Interstitial cystitis Surgical History Hx of colonoscopy Hx of tubal ligation History of Family History Mother Diabetes Father Stroke Social History Household Members: Family Alcohol intake: never Patient Tobacco Use Status: Never used Tobacco service: No Current occupational exposures/hazards: No Review of Systems Const Denies chills and Denies fever(s) Card Reports no additional complaints and Denies syncope Resp Denies cough GI Denies abdominal pain and Denies heartburn Reports as per HPI and Denies change in libido Neuro Denies syncope Psych Denies change in libido Endo Denies change in libido Physical Exam Const General: cooperative, healthy appearing, comfortable and no acute distress Orientation/consciousness: patient oriented x3 HEENT Face and sinus: Yes normal facial exam Mouth: moist mucous membranes Neck Neck: Yes normal visual inspection, Yes full ROM and Yes trachea midline Chest Chest palpation & inspection: normal inspection of the chest Resp Effort & Inspection: normal respiratory effort, able to speak in complete sentences and no respiratory distress GI Inspection: Yes normal to inspection Back/Spine/Pelvis Cervical Spine: normal cervical lordosis Thoracic/Lumbar Spine: thoracic and lumbar spine normal to inspection Skin General skin exam: no rashes or lesions noted Neuro General: patient oriented x3, gait normal, tone normal and moves all extremities Extrem General: Yes normal to inspection and Yes capillary refill normal Office Procedures Cystoscopy Consent Discussed risk and benefit or proposed procedure with the patient. Information consent for procedure given to the patient. Discussed technical aspects, risks, benefits and alternatives in full. Addressed all of the patient's questions and concerns regarding the procedure. The patient demonstrated knowledge and understanding. They wish to proceed with this procedure. Preparation The patient was prepped in the usual manner. A assistant producer was present and in the room. Genitalia was prepped with betadine solution in a sterile manner. Lidocaine Jelly 2% was placed into the urethra and 16Fr flexible Olympus cystoscope was inserted into the meatus after adequate lubrication. Procedure Meatus normal Urethra normal Bladder examination with retroflexion of cystoscope Bladder Orifices normal shape and position Trigone normal Bladder Capacity Normal Trabeculations grade 1 Cellule Formation None Diverticulum Formation None Mucosal Erythema generalized mild injection consistent with interstitial cystitis, Bladder Tumor None [id number] DISPOSABLE SCOPE URO-G FLEXIBLE SCOPE Procedure code (CPT) selection complete Office Meds lidocaine HCl 2 % mucosal jelly in applicator Performing Provider: Oscar Abreu MD [facility] Administered by: Chikis Lynn RN on 03/07/25 10:27 Dose Route Admin Location Dispensed Lot Number Expiration Date [facility] Soil Technologist 10 mL intra-urethral 10 mL nitrofurantoin monohydrate/macrocrystals 100 mg capsule Performing Provider: Oscar Abreu MD [facility] Administered by: Chikis Lynn RN on 03/07/25 10:27 Dose Route Admin Location Dispensed Lot Number Expiration Date [place] Soil Technologist 100 mg PO 1 cap Results AMB Urinalysis, Automated UA Leukoctes 0 [place]/uL Last Edit by BUD Altamirano on 03/07/25 10:19 UA Nitrite Negative Last Edit by BUD Altamirano on 03/07/25 10:19 UA Urobilinogen 0.2 mg/dL Last Edit by BUD Altamirano on 03/07/25 10:1 9 UA Protein 0 mg/dL Last Edit by BUD Altamirano on 03/07/25 10:19 UA pH 6.0 Last Edit by BUD Altamirano on 03/07/25 10:19 UA Blood 25 Per/uL Last Edit by BUD Altamirano on 03/07/25 10:19 UA Specific [place] 1.025 Last Edit by BUD Altamirano on 03/07/25 10: 19 UA Ketone Negative Last Edit by BUD Altamirano on 03/07/25 10:19 UA Bilirubin 0 mg/dL Last Edit by BUD Altamirano on 03/07/25 10:19 UA Glucose 0 mg/dL Last Edit by BUD Altamirano on 03/07/25 10:19 Results Reviewed Results Reviewed: Laboratory Last Values Urine pH (Auto) 6.0 03/07/25 10:18 Specific [place] (Auto) 1.025 03/07/25 10:18 Urine Protein (Auto) 0 mg/dL 03/07/25 10:18 Glucose (UA)(Auto) 0 mg/dL 03/07/25 10:18 Urine Ketones (Auto) Negative 03/07/25 10:18 Urine Blood (Auto) 25 Per/uL 03/07/25 10:18 Urine Nitrite (Auto) Negative 03/07/25 10:18 Urine Bilirubin (Auto) 0 mg/dL 03/07/25 10:18 Urine Urobilinogen (Auto) 0.2 mg/dL 03/07/25 10:18 Leukocyte Esterase (Auto) 0 [place]/uL 03/07/25 10:18 Assessment & Plan Assessment & Plan (1) Interstitial cystitis: Code(s): N30.10 - Interstitial cystitis (chronic) without hematuria Category: Medical (2) Microscopic hematuria: Code(s): R31.29 - Other microscopic hematuria Category: Medical Plan Six-month follow-up nurse-practitioner Orders: Orders AMB Cystoscopy Today R31.29 - Other microscopic hematuria AMB Urinalysis Automated Today Z13.9 - Encounter for screening, unspecified Patient Instructions: This note is constructed using voice recognition software. While every effort has been made to ensure accuracy chore worker errors may have been included. Imaging studies, laboratory and physical exam results were discussed and reviewed in detail. No major barriers to patient understanding were identified. An opportunity to ask questions regarding the treatment plan was provided. All questions were answered. The patient expressed understanding and agreement with the above treatment plan. The patient is aware they should contact our office by phone for worsening of their current condition or the appearance of new urologic symptoms. Compliance is encouraged with any medications and followup testing that is ordered. It is a privilege to participate in the urologic care of your patient. If you have any questions or concerns regarding treatment for the above conditions, or other urologic issues, please do not hesitate to contact me. The office telephone contact is [phone]. Sincerely, Dr Oscar Abreu MD, [facility] - Urology Compassionate Specialist Care for the Genitourinary System Coding Level of Care Code Est Pt Level 3 (07379) Diagnoses Interstitial cystitis N30.10 Microscopic hematuria R31.29 CPT Codes Cystoscopy - CPT: [id number] ([id number])
== END 2025-03-07 10:37 | disposition home or self-care (01) ==
LOC: HO.HUSH 09:47
PROVIDERS: PCP Internal Medicine; Visit Provider Urology
DX: N30.10 Interstitial cystitis (chronic) without hematuria (principal); R31.29 Other microscopic hematuria; Z13.9 Encounter for screening, unspecified
CPT/HCPCS: 52000; 99213

== ENCOUNTER → 2025-03-07 09:46 | Outpatient (BNVA) | payer MEDICAID, SELFPAY | PROVIDERS: PCP Internal Medicine; Visit Provider Urology | DX: N30.10 Interstitial cystitis (chronic) without hematuria (principal); R31.29 Other microscopic hematuria | CPT/HCPCS: 52000; 81003; 99212 ==